=== PATIENT | male | born 1970 | race Caucasian/White ===

== ENCOUNTER → 2020-06-13 17:59 | Outpatient (CLI) | payer OTHER, SELFPAY | PROVIDERS: PCP Family Medicine; Visit Provider Nurse Practitioner Family | DX: Z02.4 Encounter for examination for driving license (principal) ==

== ENCOUNTER → 2021-12-31 12:29 | Outpatient (CLI) | payer OTHER, SELFPAY ==
[2021-12-31 13:01] LABS: Blood Urea Nitrogen 13 mg/dl (9-20); Estimated Glomerular Filt Rate 118 ml/min (>60); GFR (African American) 143 ML/MIN (>60)
--- NOTE | 2021-12-31 13:02 | CT_ITS ---
FINAL REPORT TECHNIQUE: Thin section axial CT images were performed from the lung apices to the upper abdomen after the administration of IV contrast. 3-D and MIP reconstructions performed. This study was performed with techniques to keep radiation doses as low as reasonably achievable (ALARA). Individualized dose reduction techniques using automated exposure control or adjustment of mA and/or kV according to the patient''s size were employed. CLINICAL HISTORY: pulm emboli, PATIENT WAS DX WITH PE 2 YEARS AGO, TAKEN OFF ZORELTO RECENTLY AND SCAN FROM TUESDAY SHOWED BILATERAL ACUTE PE FINDINGS: Pulmonary vasculature is well opacified. There are large bilateral lower lobe pulmonary emboli present. In addition, there are smaller bilateral upper lobe pulmonary emboli present. No saddle embolism is seen. The heart size is normal. There is no pleural or pericardial effusion. There is minimal scarring at the left base. Lungs are otherwise clear. Limited images of the upper abdomen are unremarkable. IMPRESSION: Bilateral pulmonary emboli in both upper and lower lobes, particularly evident in the lower lobes. Reviewed, Interpreted and Dictated by Kenn Fowler MD Transcribed by Delia Dallas Authenticated by Kenn Fowler MD on 12/31/2021 02:47:43 PM [facility]
--- NOTE | 2021-12-31 13:13 | CA_ITS ---
APPROVED REPORT EXAM: Comprehensive 2D, Doppler, and color-flow Echocardiogram Platform Architect: Misa Guan RVT Ht: 6 ft 0 in Wt: 345lbs BSA: 2.69 BP: 153/93 mmHg Indications: SOA,PE'S,STEMI,DM,OBESITY,FATIGUE,HTN,EDEMA TDS-PT BODY HABITUS BEST EXAM POSSIBLE 2D Dimensions LVOT 2.38 cm (M/F) 1.5-2.5 M-Mode Dimensions RVDd 3.99 cm (0.9-2.6) LA Diam 4.50 cm (1.9-4.0) LVDd 3.85 cm (3.5-5.7) Ao Diam 3.20 cm (2.0-3.7) LVDs 2.49 cm (3.5-5.7) IVSd 1.41 cm (0.6-1.1) PWd 1.13 cm (0.6-1.1) EF (Teich) 65.40% FS 35.30% EDV (Teich) 63.90 mL TAPSE 2.63 (<1.7) ESV (Teich) 22.10 mL LV Diastology E Decel Time 233.00 (160-240 msec) E/A Ratio 0.8 MED E' 6.60 (< 7 cm/sec) E'/MED E' Ratio 11.38 (>14) LAT E' 7.70 (<10 cm/sec) E/LAT E' Ratio 9.75 (>14) Aortic Valve AO Peak GR. 6.50 mmHg Mitral Valve MV E Max Terence. 75.00 (40-130 cm/s) MV A Velocity 100.00 (40-130 cm/s) E/A Ratio 0.75 MV Decel. Time 233.00 (160-240 ms) MV PHT 68.00 ms Pulmonary Valve PV Peak Velocity 69.00 (50-150 cm/s) Tricuspid Valve TR P. Velocity 181.00 cm/s RAP Estimate 10.00 mmHg RVSP 23.10 mmHg Left Ventricle Technically difficult study because of the patient factors and poor acoustic windows. Left atrium is mildly enlarged, left ventricle is normal size, mild concentric left ventricular hypertrophy, estimated ejection fraction 55%, there is flattening of the interventricular septum during systole and diastole raising the concern for presence of pressure and volume overload on right ventricle. Right Ventricle Right atrium and right ventricle are moderately enlarged, contractility right ventricle is mildly reduced. Aortic Valve Aortic valve is minimally thickened and fibrosed, there is no aortic stenosis or aortic insufficiency. Mitral Valve Mitral valve is grossly normal, there is trace mitral regurgitation. Tricuspid Valve Tricuspid valve grossly normal, there is trace tricuspid regurgitation, tricuspid regurgitation jet velocity is inadequate for calculation of the right ventricular systolic pressure. Pulmonic Valve Pulmonic valve is poorly visualized. Great Vessels Aortic root is normal size. Inferior vena cava is normal size with normal inspiratory collapse. Pericardium No significant pericardial effusion noted. Conclusion 1. Technically difficult study because of the patient factors and poor acoustic windows. 2. Biatrial enlargement, normal left ventricular size, mild concentric left ventricular hypertrophy, estimated ejection fraction 55%, there is flattening of the interventricular septum during systole and diastole consistent with pressure and volume overload on right ventricle. Grade 1 diastolic dysfunction seen without tissue Doppler evidence of raise left atrial pressure. 3. Trace mitral and tricuspid regurgitation. 4. No significant pericardial effusion noted. 5. Inferior vena cava is normal size with normal inspiratory collapse. Electronically signed by : Teja Rodriguez MD 01/01/2022 12:36:43
== END ==
PROVIDERS: PCP Family Medicine; Visit Provider Internal Medicine
DX: R06.00 Dyspnea, unspecified (principal); R60.0 Localized edema; I21.9 Acute myocardial infarction, unspecified; I26.99 Other pulmonary embolism without acute cor pulmonale; R53.83 Other fatigue; R61 Generalized hyperhidrosis; R94.31 Abnormal electrocardiogram [ECG] [EKG]
CPT/HCPCS: 36415; 71275; 82565; 84520; 93306; Q9967

== ENCOUNTER → 2022-06-03 10:27 | Outpatient (CLI) | payer MEDICAID, SELFPAY | PROVIDERS: PCP Family Medicine; Visit Provider Nurse Practitioner Family | DX: Z02.4 Encounter for examination for driving license (principal) ==

== ENCOUNTER → 2022-06-14 11:55 | Outpatient (CLI) | payer MEDICAID, SELFPAY ==
[2022-06-14 12:34] LABS: Basophils # 0.1 K/mm3 (0-0.2); Basophils % 1.2 % (0.1-2.0); Eosinophils # 0.4 K/mm3 (0.0-0.4); Eosinophils % 3.9 % (0.1-12.0); Hematocrit 49.6 % (42.0-52.0); Lymphocytes # 1.8 K/mm3 (0.7-4.5); Lymphocytes % 16.2 % (10-50); Mean Corpuscular HGB Conc 34.3 g/dL (31.8-35.4); Mean Corpuscular Hemoglobin 33.2 pg (27.0-31.2); Mean Corpuscular Volume 96.8 fl (80-94); Mean Platelet Volume 7.9 fl (7.4-10.4); Monocytes # 0.7 K/mm3 (0.1-1.0); Neutrophils # 8.1 K/mm3 (1.8-7.8); Neutrophils % 72.8 % (37.0-80.0); Platelet Count 283 K/mm3 (142-424); Red Blood Count 5.12 M/mm3 (4.60-6.20); Red Cell Distribution Width 13.8 % (11.5-17.5); White Blood Count 11.2 K/mm3 (4.8-10.8)
[2022-06-14 13:03] LABS: Alanine Aminotransferase 74 U/L (12-78); Albumin Level 3.9 g/dl (3.5-5.0); Alkaline Phosphatase 157 U/L (38-126); Anion Gap 15.3 mEq/L (5-15); Aspartate Amino Transferase 67 U/L (17-59); Bilirubin,Direct 0.2 mg/dl (0.0-0.4); Bilirubin,Indirect 0.2 mg/dL (0.0-0.9); Bilirubin,Total 0.4 mg/dl (0.2-1.3); Bilirubin,Unconjugated 0.3 mg/dL (0.0-1.1); Blood Urea Nitrogen 8 mg/dl (9-20); Calcium 9.3 mg/dl (8.4-10.2); Carbon Dioxide 27 mmol/L (22.0-30.0); Chloride 97 mmol/L (98-107); Chol/HDL Ratio 4.7 (1-3.5); Cholesterol 201 mg/dl (140-200); Estimated Glomerular Filt Rate 141 ml/min (>60); GFR (African American) 171 ML/MIN (>60); Glucose 249 mg/dl (74-100); HDL Cholesterol 43 mg/dl (40-60); Magnesium 1.4 mg/dl (1.6-2.3); Potassium 4.3 mmoL/L (3.5-5.1); Sodium 135 mmol/L (136-145); Total Protein,Serum 7.1 g/dl (6.3-8.2); Triglycerides 156 mg/dl (30-150); VLDL Cholesterol 31 mg/dL (0-40)
[2022-06-14 13:14] LABS: Direct LDL Cholesterol 141.22 mg/dL (100-129)
[2022-06-14 13:33] LABS: Thyroid Stimulating Hormone 1.73 uIU/mL (0.465-4.68)
== END ==
PROVIDERS: PCP Family Medicine; Visit Provider Physician Assistant
DX: I21.A1 Myocardial infarction type 2 (principal); I26.99 Other pulmonary embolism without acute cor pulmonale; R53.83 Other fatigue; R60.0 Localized edema
CPT/HCPCS: 36415; 80048; 80061; 80076; 83735; 84439; 84443; 85025

== ENCOUNTER → 2022-08-16 09:35 | Outpatient (CLI) | payer MEDICAID, SELFPAY ==
[2022-08-16 10:11] LABS: Chloride 98 mmol/L (98-107); Potassium 4.7 mmoL/L (3.5-5.1); Sodium 134 mmol/L (136-145)
[2022-08-16 10:13] LABS: Blood Urea Nitrogen 10 mg/dl (9-20); Estimated Glomerular Filt Rate 118 ml/min (>60); GFR (African American) 143 ML/MIN (>60)
[2022-08-16 10:14] LABS: Alanine Aminotransferase 63 U/L (12-78); Albumin Level 4.1 g/dl (3.5-5.0); Alkaline Phosphatase 150 U/L (38-126); Anion Gap 15.7 mEq/L (5-15); Aspartate Amino Transferase 51 U/L (17-59); Bilirubin,Direct 0.2 mg/dl (0.0-0.4); Bilirubin,Indirect 0.6 mg/dL (0.0-0.9); Bilirubin,Total 0.8 mg/dl (0.2-1.3); Bilirubin,Unconjugated 0.6 mg/dL (0.0-1.1); Calcium 9.8 mg/dl (8.4-10.2); Carbon Dioxide 25 mmol/L (22.0-30.0); Cholesterol 169 mg/dl (140-200); Glucose 221 mg/dl (74-100); Total Protein,Serum 7.1 g/dl (6.3-8.2); Triglycerides 140 mg/dl (30-150); VLDL Cholesterol 28 mg/dL (0-40)
[2022-08-16 10:15] LABS: Chol/HDL Ratio 3.4 (1-3.5); HDL Cholesterol 49 mg/dl (40-60); Magnesium 1.7 mg/dl (1.6-2.3)
[2022-08-16 10:26] LABS: Direct LDL Cholesterol 91.03 mg/dL (100-129)
== END ==
PROVIDERS: PCP Family Medicine; Visit Provider Physician Assistant
DX: E78.5 Hyperlipidemia, unspecified (principal); E83.42 Hypomagnesemia; I51.89 Other ill-defined heart diseases
CPT/HCPCS: 36415; 80048; 80061; 80076; 83735

== ENCOUNTER 2022-08-19 12:52 | Emergency (ER) | payer MEDICAID, SELFPAY ==
[2022-08-19 13:41] VITALS: BP 104/64; PULSE 74; RESP 20; TEMP 36.7; O2SAT 97; BMI 44.0
[2022-08-19 14:00] VITALS: BP 123/70; PULSE 70; RESP 18; O2SAT 98
--- NOTE | 2022-08-19 14:22 | XR_ITS ---
FINAL REPORT CLINICAL HISTORY: weakness/dizziness, HYPERTENSION X DAYS. NONSMOKER FINDINGS: A single portable view of the chest was obtained. There is cardiomegaly. The mediastinum is within normal limits. No acute pulmonary abnormality is identified. There are postoperative changes in the lower cervical spine. IMPRESSION: No active cardiopulmonary disease. Reviewed, Interpreted and Dictated by Jason Platt III, MD Transcribed by Sherita Rodriguez Authenticated and . [facility]
--- NOTE | 2022-08-19 14:26 | ECG_ITS ---
APPROVED REPORT Exam: Resting ECG HR:66 bpm ECG Measurements Heart Rate 66 AXES OR 157 P 22 QRSd 87 QRS 14 QT 388 T 69 QTc 402 Conclusion SINUS RHYTHM NORMAL ECG INTERPRETATION BASED ON A DEFAULT AGE OF 39 YEARS UNCONFIRMED REPORT Electronically signed by : Bhaskar Peck MD 08/20/2022 16:47:25
[2022-08-19 14:30] VITALS: BP 128/77; PULSE 73; RESP 18; O2SAT 98
[2022-08-19 14:47] LABS: Basophils # 0.2 K/mm3 (0-0.2); Basophils % 1.3 % (0.1-2.0); Chloride 97 mmol/L (98-107); Eosinophils # 0.3 K/mm3 (0.0-0.4); Eosinophils % 2.3 % (0.1-12.0); Hematocrit 42.9 % (42.0-52.0); Hemoglobin 14.8 g/dL (14.1-18.0); Lymphocytes # 2.8 K/mm3 (0.7-4.5); Lymphocytes % 22.3 % (10-50); Mean Corpuscular HGB Conc 34.6 g/dL (31.8-35.4); Mean Corpuscular Hemoglobin 32.1 pg (27.0-31.2); Mean Corpuscular Volume 92.9 fl (80-94); Mean Platelet Volume 7.9 fl (7.4-10.4); Monocytes # 0.8 K/mm3 (0.1-1.0); Monocytes % 6.5 % (1.7-9.3); Neutrophils # 8.4 K/mm3 (1.8-7.8); Neutrophils % 67.6 % (37.0-80.0); Platelet Count 348 K/mm3 (142-424); Potassium 4.3 mmoL/L (3.5-5.1); Red Blood Count 4.61 M/mm3 (4.60-6.20); Sodium 133 mmol/L (136-145); White Blood Count 12.5 K/mm3 (4.8-10.8)
[2022-08-19 14:50] LABS: Alanine Aminotransferase 64 U/L (12-78); Albumin Level 4.2 g/dl (3.5-5.0); Albumin/Globulin Ratio 1.3 (1.1-1.8); Alkaline Phosphatase 131 U/L (38-126); Anion Gap 15.3 mEq/L (5-15); Aspartate Amino Transferase 63 U/L (17-59); Bilirubin,Total 0.6 mg/dl (0.2-1.3); Blood Urea Nitrogen 17 mg/dl (9-20); Carbon Dioxide 25 mmol/L (22.0-30.0); Creatinine Clearance Estimated 117 mL/min (50-200); Estimated Glomerular Filt Rate 101 ml/min (>60); GFR (African American) 122 ML/MIN (>60); Globulin 3.3 g/dL (1.3-3.2); Glucose 142 mg/dl (74-100); Total Protein,Serum 7.5 g/dl (6.3-8.2)
[2022-08-19 14:51] LABS: Calcium 10.2 mg/dl (8.4-10.2)
--- NOTE | 2022-08-19 14:58 | HMH.EDGENADL ---
Discharge Plan Disposition Patient Disposition: Home, Self-Care Condition: Good Prescriptions Prescriptions: No Action allopurinol 300 mg tablet 300 mg PO DAILY allopurinol 100 mg tablet 100 mg PO DAILY benazepril 40 mg tablet 40 mg PO DAILY cholecalciferol (vitamin D3) [Vitamin D3] 25 mcg (1,000 unit) capsule 25 mcg PO BID garlic 1,000 mg capsule 1,000 mg capsule 1,000 mg PO DAILY carvedilol 12.5 mg tablet 25 mg PO BID Rx Instructions: 2 tabs po bid rivaroxaban 15 mg tablet 15 mg PO DAILY metformin 500 mg tablet 500 mg PO BID furosemide [Lasix] 40 mg tablet 40 mg PO DAILY Qty: 30 2RF spironolactone [Aldactone] 25 mg tablet 25 mg PO DAILY Qty: 30 5RF magnesium oxide 400 mg (241.3 mg magnesium) tablet 400 mg PO DAILY Qty: 30 2RF atorvastatin [Lipitor] 80 mg tablet 80 mg PO DAILY Qty: 30 2RF Referrals Follow up/Referrals: Dion Enriquez [Primary Care Provider] - See instructions Activity Restrictions/Add. Instructions Additional Instructions/Restrictions: Decrease Coreg dose to 12.5 mg twice a day. Call Dr. Crespo's office to arrange follow-up appointment. Return to the emergency department if symptoms worsen. Clinical Impressions Clinical Impression: Episodic lightheadedness Instructions Patient Instructions: DI for Dizziness-Nonvertigo Discharge ED Provider: Wan Finch General Adult HPI General Chief complaint: Dizziness Stated complaint: LT arm weakness, lightheaded Time Seen by Provider: 08/19/22 14:58 Mode of Arrival: Wheelchair Source of Information: Patient Limitations: No Limitations Description of Symptoms (Recalled from ER Triage Doc. by RN): Patient reports he started feeling dizzy, light headed after taking his morning medications. Patient reports he has experienced this before but generally it goes away fairly quickly but it has not subsided this morning and has just gotten worse. History of Present Illness HPI narrative: Patient states that after taking his morning medications, including his blood pressure medication, that he began feeling lightheaded. He says that this generally happens after he takes his medications but usually will resolve fairly quickly and today it did not. It lasted for several hours. He now feels back to normal. He says that he took his blood pressure this morning it was 106 over 50s. States normally he runs 120-130 systolic. He says that his most recent blood pressure medication change was for Dr. Crespo to stop his clonidine. Denies chest pain or shortness of breath. Related Data Home Medications Medication Instructions Recorded Confirmed allopurinol 100 mg tablet 100 mg PO DAILY 04/21/20 08/16/22 allopurinol 300 mg tablet 300 mg PO DAILY 04/21/20 08/16/22 benazepril 40 mg tablet 40 mg PO DAILY 04/21/20 08/16/22 cholecalciferol (vitamin D3) 25 25 mcg PO BID 04/21/20 08/16/22 mcg (1,000 unit) capsule (Vitamin D3) garlic 1,000 mg capsule 1,000 mg PO DAILY 04/21/20 08/16/22 carvedilol 12.5 mg tablet 25 mg PO BID 12/31/21 08/16/22 metformin 500 mg tablet 500 mg PO BID 12/31/21 08/16/22 rivaroxaban 15 mg tablet 15 mg PO DAILY 05/31/22 08/16/22 Previous Rx's Medication Instructions Recorded furosemide 40 mg tablet (Lasix) 40 mg PO DAILY #30 tabs 05/31/22 magnesium oxide 400 mg (241.3 mg 400 mg PO DAILY #30 tabs 06/15/22 magnesium) tablet spironolactone 25 mg tablet 25 mg PO DAILY #30 tabs 06/15/22 (Aldactone) atorvastatin 80 mg tablet (Lipitor) 80 mg PO DAILY #30 tabs 08/17/22 Allergies Allergy/AdvReac Type Severity Reaction Status Date / Time cephalexin [From KEFLEX] Allergy Mild Verified 08/16/22 09:52 erythromycin base Allergy Mild Verified 08/16/22 09:52 [ERYTHROMYCIN BASE] naproxen [NAPROXEN] Allergy Mild Verified 08/16/22 09:52 PCN Allergy Mild Uncoded 08/16/22 09:52 [facility] Disclaimer: The information contained in this sec
[2022-08-19 15:35] LABS: Troponin I < 0.01 ng/ml (0.00-0.034)
[2022-08-19 16:43] VITALS: BP 126/74; PULSE 73; RESP 16; TEMP 36.9; O2SAT 98
== END 2022-08-19 16:48 | disposition home or self-care (01) ==
PROVIDERS: Emergency Provider Emergency Medicine; PCP Family Medicine
DX: R42 Dizziness and giddiness (principal); Z79.84 Long term (current) use of oral hypoglycemic drugs; Z79.51 Long term (current) use of inhaled steroids; Z79.899 Other long term (current) drug therapy; Z88.0 Allergy status to penicillin; Z88.1 Allergy status to other antibiotic agents; E78.5 Hyperlipidemia, unspecified; I51.89 Other ill-defined heart diseases
CPT/HCPCS: 71045; 80053; 84484; 85025; 93005; 99284

== ENCOUNTER 2022-08-27 22:57 | Emergency (ER) | payer MEDICAID, SELFPAY ==
[2022-08-27 22:58] VITALS: BP 133/59; PULSE 115; RESP 21; TEMP 36.8; O2SAT 98; BMI 43.4
--- NOTE | 2022-08-27 23:06 | PC.NURSE ---
Dr. Martin at
--- NOTE | 2022-08-27 23:44 | XR_ITS ---
PROCEDURE INFORMATION: Exam: XR Chest Exam date and time: 08/28/2022 12:03 AM Age: 52 years old Clinical indication: Shortness of breath; Additional info: Weakness TECHNIQUE: Imaging protocol: Radiologic exam of the chest. Views: 1 view. Portable chest x-ray. COMPARISON: CR XR CHEST PORTABLE 08/19/2022 2:48 PM FINDINGS: Lungs: No airspace consolidation or nodules. Lung volumes are low. No vascular congestion. Pleural spaces: No pleural effusion. No pneumothorax. Heart/Mediastinum: Heart is enlarged. Bones/joints: No fractures or bone lesions. IMPRESSION: 1. Cardiomegaly similar to 08/19/2022. 2. No acute pulmonary disease. Lung volumes are low.
[2022-08-27 23:46] LABS: Microscopic, Urine URINE MICROSCOPIC (MICROSCOPIC)
[2022-08-27 23:48] LABS: Basophils # 0.2 K/mm3 (0-0.2); Basophils % 1.5 % (0.1-2.0); Eosinophils # 0.5 K/mm3 (0.0-0.4); Eosinophils % 3.6 % (0.1-12.0); Hematocrit 39.9 % (42.0-52.0); Hemoglobin 13.7 g/dL (14.1-18.0); Lymphocytes # 3.4 K/mm3 (0.7-4.5); Lymphocytes % 26.8 % (10-50); Mean Corpuscular HGB Conc 34.3 g/dL (31.8-35.4); Mean Corpuscular Hemoglobin 31.9 pg (27.0-31.2); Mean Platelet Volume 8.1 fl (7.4-10.4); Monocytes # 0.7 K/mm3 (0.1-1.0); Monocytes % 5.8 % (1.7-9.3); Neutrophils # 7.8 K/mm3 (1.8-7.8); Neutrophils % 62.2 % (37.0-80.0); Platelet Count 340 K/mm3 (142-424); Red Blood Count 4.29 M/mm3 (4.60-6.20); Red Cell Distribution Width 14.3 % (11.5-17.5); White Blood Count 12.5 K/mm3 (4.8-10.8)
[2022-08-27 23:50] LABS: Appearance,Urine CLEAR (Clear); Bilirubin,Urine Negative (Negative); Blood, Urine Negative (Negative); Color,Urine YELLOW (Yellow); Glucose,Urine (UA) TRACE (Negative); Ketones,Urine Negative (Negative); Leukocyte Esterase,Urine Negative (Negative); Nitrate,Urine Negative (Negative); PH,Urine 5.5 (5.0-8.5); Protein,Urine Negative (Negative); Specific Gravity, Urine <= 1.005 (1.005-1.030); Urobilinogen,Urine 0.2 EU/dl (0.2)
[2022-08-27 23:52] LABS: Magnesium 1.3 mg/dl (1.6-2.3)
--- NOTE | 2022-08-27 23:53 | HMH.EDWEAK ---
Discharge Plan Disposition Patient Disposition: Home, Self-Care Chief Complaint: Weakness Prescriptions Prescriptions: No Action allopurinol 300 mg tablet 300 mg PO DAILY allopurinol 100 mg tablet 100 mg PO DAILY benazepril 40 mg tablet 40 mg PO HS cholecalciferol (vitamin D3) [Vitamin D3] 25 mcg (1,000 unit) capsule 25 mcg PO BID garlic 1,000 mg capsule 1,000 mg capsule 1,000 mg PO DAILY carvedilol 12.5 mg tablet 12.5 mg PO BID Rx Instructions: 2 tabs po bid metformin 500 mg tablet 500 mg PO BID Xarelto 20 mg tablet 20 mg PO HS furosemide [Lasix] 40 mg tablet 40 mg PO DAILY atorvastatin [Lipitor] 80 mg tablet 80 mg PO DAILY spironolactone [Aldactone] 25 mg tablet 25 mg PO DAILY magnesium oxide 400 mg (241.3 mg magnesium) tablet 400 mg PO DAILY Referrals Follow up/Referrals: Dion Enriquez [Primary Care Provider] - See instructions Clinical Impressions Clinical Impression: Episodic lightheadedness, Diastolic dysfunction Instructions Patient Instructions: DI for Orthostatic Hypotension Discharge ED Provider: Galdino Martin HPI General Chief complaint: Weakness Stated complaint: low blood pressure Time Seen by Provider: 08/27/22 23:53 Mode of Arrival: Family Vehicle Source of Information: Patient, Spouse and Medical Record Limitations: No Limitations Description of Symptoms (Recalled from ER Triage Doc. by RN): Pt c/o low BP and pre-syncopal episode. He states he was here last week (08/19) and was told to adjust his BP meds. His Coreg was changed to 12.5 BID and benazopril to nightly. Pt states he felt fine until after eating supper and then stood up and felt light headed, weak, and thought his BP dropped. Fmaily took it oat home and states it was 57/75 and then 70/62 . History of Present Illness HPI Narrative: pt with episode of low bp with assoc dizzyness - pt has been seen in the ed last week MD Complaint: generalized weakness Onset (ago): hour(s) Duration: intermittent Location: generalized Migration: none Severity: moderate Context: history of similar Related Data Home Medications Medication Instructions Recorded Confirmed allopurinol 100 mg tablet 100 mg PO DAILY 04/21/20 08/16/22 allopurinol 300 mg tablet 300 mg PO DAILY 04/21/20 08/16/22 benazepril 40 mg tablet 40 mg PO DAILY 04/21/20 08/16/22 cholecalciferol (vitamin D3) 25 25 mcg PO BID 04/21/20 08/16/22 mcg (1,000 unit) capsule (Vitamin D3) garlic 1,000 mg capsule 1,000 mg PO DAILY 04/21/20 08/16/22 carvedilol 12.5 mg tablet 25 mg PO BID 12/31/21 08/16/22 metformin 500 mg tablet 500 mg PO BID 12/31/21 08/16/22 atorvastatin 80 mg tablet (Lipitor) 80 mg PO DAILY High cholesterol 08/28/22 08/28/22 furosemide 40 mg tablet (Lasix) 40 mg PO DAILY Fluid 08/28/22 08/28/22 magnesium oxide 400 mg (241.3 mg 400 mg PO DAILY Supplement 08/28/22 08/28/22 magnesium) tablet rivaroxaban 20 mg tablet (Xarelto) 20 mg PO HS PE's 08/28/22 08/28/22 spironolactone 25 mg tablet 25 mg PO DAILY High blood pressure 08/28/22 08/28/22 (Aldactone) Allergies Allergy/AdvReac Type Severity Reaction Status Date / Time cephalexin [From KEFLEX] Allergy Mild Verified 08/16/22 09:52 erythromycin base Allergy Mild Verified 08/16/22 09:52 [ERYTHROMYCIN BASE] naproxen [NAPROXEN] Allergy Mild Verified 08/16/22 09:52 PCN Allergy Mild Uncoded 08/16/22 09:52 [facility] Disclaimer: The information contained in this section may have been updated after the patient was seen, as this information can be updated by other users. Medical History Diastolic dysfunction HLD (hyperlipidemia) Hypomagnesemia Social History Smoking Status: Never smoker alcohol intake: current substance use type: denies use current occupational status: employed Travel in
[2022-08-27 23:58] LABS: Squamous Epithelial Cell,Urine Occasional #/hpf (0-5)
[2022-08-28 00:05] LABS: NT Pro Brain Natriuretic Pep. 37.1 pg/mL (0-125); Troponin I < 0.01 ng/ml (0.00-0.034)
[2022-08-28 00:11] LABS: Alanine Aminotransferase 41 U/L (12-78); Albumin Level 3.9 g/dl (3.5-5.0); Albumin/Globulin Ratio 1.2 (1.1-1.8); Alkaline Phosphatase 135 U/L (38-126); Anion Gap 14.8 mEq/L (5-15); Aspartate Amino Transferase 41 U/L (17-59); Bilirubin,Total 0.6 mg/dl (0.2-1.3); Blood Urea Nitrogen 14 mg/dl (9-20); Calcium 9.6 mg/dl (8.4-10.2); Carbon Dioxide 24 mmol/L (22.0-30.0); Chloride 96 mmol/L (98-107); Creatinine Clearance Estimated 94 mL/min (50-200); Estimated Glomerular Filt Rate 78 ml/min (>60); GFR (African American) 95 ML/MIN (>60); Globulin 3.3 g/dL (1.3-3.2); Glucose 165 mg/dl (74-100); Potassium 3.8 mmoL/L (3.5-5.1); Sodium 131 mmol/L (136-145); Total Protein,Serum 7.2 g/dl (6.3-8.2)
[2022-08-28 00:20] VITALS: BP 86/46; BP 95/51; PULSE 69; PULSE 74; PULSE 79
--- NOTE | 2022-08-28 00:20 | PC.NURSE ---
Hospitalist at bedside
[2022-08-28 01:04] VITALS: BP 108/59; PULSE 80; RESP 19; TEMP 36.6; O2SAT 99
--- NOTE | 2022-08-28 23:04 | ECG_ITS ---
APPROVED REPORT Exam: Resting ECG HR:69 bpm ECG Measurements Heart Rate 69 AXES ND 166 P 45 QRSd 92 QRS 29 QT 395 T 66 QTc 415 Conclusion SINUS RHYTHM NORMAL ECG UNCONFIRMED REPORT Electronically signed by : Bhaskar Peck MD 08/30/2022 11:15:02
== END 2022-08-28 01:08 | disposition home or self-care (01) ==
PROVIDERS: Emergency Provider Emergency Medicine; PCP Family Medicine
DX: R42 Dizziness and giddiness (principal); I50.31 Acute diastolic (congestive) heart failure; R53.1 Weakness; I95.9 Hypotension, unspecified; E83.42 Hypomagnesemia; E78.5 Hyperlipidemia, unspecified; E66.9 Obesity, unspecified; Z79.01 Long term (current) use of anticoagulants; Z79.84 Long term (current) use of oral hypoglycemic drugs; Z79.899 Other long term (current) drug therapy; Z88.0 Allergy status to penicillin; Z88.1 Allergy status to other antibiotic agents; Z88.3 Allergy status to other anti-infective agents; Z88.6 Allergy status to analgesic agent; Z88.8 Allergy status to other drugs, medicaments and biological substances; Z68.41 Body mass index [BMI] 40.0-44.9, adult
CPT/HCPCS: 71045; 80053; 81001; 83735; 83880; 84484; 85025; 93005; 96360; 99285

== ENCOUNTER → 2022-11-08 10:16 | Outpatient (CLI) | payer MEDICAID, SELFPAY ==
--- NOTE | 2022-11-08 10:20 | XR_ITS ---
FINAL REPORT CLINICAL HISTORY: foot pain, bilat numbness/pain in toes, prior fx in left foot x30 yrs ago FINDINGS: LEFT FOOT Three views of the left foot demonstrate no acute fracture or dislocation. There are mild and moderate degenerative changes, greatest at the 1st MTP joint. There is chronic deformity of the 4th metatarsal which may represent sequela of prior fracture. The soft tissues are unremarkable. IMPRESSION: Mild and moderate degenerative changes with no acute bony abnormality. Reviewed, Interpreted and Dictated by Jason Platt III, MD Transcribed by Sherita Rodriguez Authenticated and [facility]
--- NOTE | 2022-11-08 10:20 | XR_ITS ---
FINAL REPORT CLINICAL HISTORY: foot pain, bilat numbness/pain in toes, prior fx in left foot x30 yrs ago FINDINGS: RIGHT FOOT Three views of the right foot demonstrate no acute fracture or dislocation. There are mild degenerative changes. There is a posterior calcaneal spur. The soft tissues are unremarkable. IMPRESSION: Mild degenerative changes with no acute bony abnormality. Reviewed, Interpreted and Dictated by Jason Platt III, MD Transcribed by Sherita Rodriguez Authenticated and [facility]
--- NOTE | 2022-11-08 10:20 | XR_ITS ---
FINAL REPORT CLINICAL HISTORY: foot pain, bilat numbness/pain in toes, prior fx in left foot x30 yrs ago FINDINGS: LEFT ANKLE Three views of the left ankle were obtained. There is no acute fracture or dislocation. There are mild degenerative changes. There are calcaneal spurs.. There are mild vascular calcifications. IMPRESSION: Mild degenerative changes with no acute bony abnormality. Reviewed, Interpreted and Dictated by Jason Platt III, MD Transcribed by Sherita Rodriguez Authenticated and [facility]
--- NOTE | 2022-11-08 10:20 | XR_ITS ---
FINAL REPORT CLINICAL HISTORY: foot pain, bilat numbness/pain in toes, prior fx in left foot x30 yrs ago FINDINGS: RIGHT ANKLE Three views of the right ankle were obtained. There is no acute fracture or dislocation. There are mild and moderate degenerative changes. There is a posterior calcaneal spur. There are soft tissue calcifications. IMPRESSION: Mild and moderate degenerative changes with no acute bony abnormality. Reviewed, Interpreted and Dictated by Jason Platt III, MD Transcribed by Sherita Rodriguez Authenticated and [facility]
== END ==
PROVIDERS: PCP Family Medicine; Visit Provider Podiatrist
DX: M79.671 Pain in right foot (principal); M79.672 Pain in left foot; M25.571 Pain in right ankle and joints of right foot; M25.572 Pain in left ankle and joints of left foot
CPT/HCPCS: 73610; 73630

== ENCOUNTER → 2022-11-22 11:08 | Outpatient (CLI) | payer MEDICAID, SELFPAY ==
--- NOTE | 2022-11-22 | US_ITS ---
FINAL REPORT CLINICAL HISTORY: HTN, CAD, DM, IA, numb toes FINDINGS: ANKLE-BRACHIAL PRESSURE INDICES Pressure indices are as follows: RIGHT LOWER EXTREMITY: Ankle-brachial pressure index: 1.2 Comments: Normal LEFT LOWER EXTREMITY: Ankle-brachial pressure index: 1.2 Comments: Normal IMPRESSION: No evidence of significant obstructive peripheral vascular disease of the lower extremities Reviewed, Interpreted and Dictated by Kenn Fowler MD Transcribed by Kimmy Isidro Authenticated and [facility]
== END ==
PROVIDERS: PCP Family Medicine; Visit Provider Nurse Practitioner Family
DX: R09.89 Other specified symptoms and signs involving the circulatory and respiratory systems (principal); M79.671 Pain in right foot; M79.672 Pain in left foot; R20.0 Anesthesia of skin
CPT/HCPCS: 93923

== ENCOUNTER 2024-06-25 10:50 | Outpatient (CLI) | payer OTHER, SELFPAY ==
--- NOTE | 2024-06-25 10:55 | XR_ITS ---
PROCEDURE INFORMATION: Exam: XR Chest Exam date and time: 06/25/2024 11:02 AM Age: 54 years old Clinical indication: Cough and dyspnea; Additional info: Cough, dyspnea, TECHNIQUE: Imaging protocol: Radiologic exam of the chest. Views: 2 views. COMPARISON: CR XR CHEST PORTABLE 08/28/2022 12:03 AM FINDINGS: Lungs: The lungs are clear. Pleural spaces: No pneumothorax or pleural effusion. Heart/Mediastinum: Heart size is enlarged. Mediastinal contours unremarkable. Bones/joints: No acute osseous or soft tissue abnormality. IMPRESSION: 1. The lungs are clear. 2. Cardiomegaly.
[2024-06-25 11:57] LABS: Basophils # 0.1 K/mm3 (0-0.2); Basophils % 1.2 % (0.1-2.0); Eosinophils # 0.8 K/mm3 (0.0-0.4); Eosinophils % 6.8 % (0.1-12.0); Hematocrit 43.5 % (42.0-52.0); Hemoglobin 15.7 g/dL (14.1-18.0); Mean Corpuscular HGB Conc 36.1 g/dL (31.8-35.4); Mean Corpuscular Hemoglobin 32.7 pg (27.0-31.2); Mean Corpuscular Volume 90.6 fl (80-94); Mean Platelet Volume 7.6 fl (7.4-10.4); Monocytes % 8.2 % (1.7-9.3); Neutrophils % 66.8 % (37.0-80.0); Platelet Count 306 K/mm3 (142-424); Red Cell Distribution Width 14.2 % (11.5-17.5)
[2024-06-25 12:17] LABS: Alanine Aminotransferase 48 U/L (12-78); Albumin Level 3.9 g/dl (3.5-5.0); Alkaline Phosphatase 105 U/L (38-126); Anion Gap 12.5 mEq/L (5-15); Aspartate Amino Transferase 42 U/L (17-59); Bilirubin,Direct 0.3 mg/dl (0.0-0.4); Bilirubin,Indirect 0.6 mg/dL (0.0-0.9); Bilirubin,Total 0.9 mg/dl (0.2-1.3); Bilirubin,Unconjugated 0.6 mg/dL (0.0-1.1); Blood Urea Nitrogen 7 mg/dl (9-20); Calcium 9.2 mg/dl (8.4-10.2); Carbon Dioxide 25 mmol/L (22.0-30.0); Chloride 101 mmol/L (98-107); Chol/HDL Ratio 2.5 (1-3.5); Cholesterol 124 mg/dl (140-200); Estimated Glomerular Filt Rate 117 ml/min (>60); GFR (African American) 142 ML/MIN (>60); Glucose 172 mg/dl (74-100); HDL Cholesterol 50 mg/dl (40-60); Magnesium 1.6 mg/dl (1.6-2.3); Potassium 4.5 mmoL/L (3.5-5.1); Sodium 134 mmol/L (136-145); Triglycerides 75 mg/dl (30-150); VLDL Cholesterol 15 mg/dL (0-40)
[2024-06-25 12:26] LABS: NT Pro Brain Natriuretic Pep. 47.4 pg/mL (0-125)
[2024-06-25 12:28] LABS: Direct LDL Cholesterol 62.89 mg/dL (100-129)
[2024-06-25 12:47] LABS: Thyroid Stimulating Hormone 3.01 uIU/mL (0.465-4.68)
== END 2024-06-25 23:59 | disposition home or self-care (01) ==
LOC: LAB 10:52
PROVIDERS: PCP Family Medicine; Visit Provider Physician Assistant
DX: R60.9 Edema, unspecified (principal); I26.99 Other pulmonary embolism without acute cor pulmonale; R06.00 Dyspnea, unspecified; R05.9 Cough, unspecified; I51.89 Other ill-defined heart diseases; E78.5 Hyperlipidemia, unspecified; I10 Essential (primary) hypertension
CPT/HCPCS: 36415; 71046; 80048; 80061; 80076; 83735; 83880; 84439; 84443; 85025

== ENCOUNTER 2024-08-12 15:39 | Emergency (ER) | payer OTHER, SELFPAY ==
[2024-08-12] VITALS (10 sets, daily range): BP systolic 123–166; BP diastolic 77–104; PULSE 63–88; RESP 14–24; TEMP 36.6–37.1; O2SAT 93–97; BMI 46.0
--- NOTE | 2024-08-12 15:39 | ECG_ITS ---
APPROVED REPORT Exam: Resting ECG HR:84 bpm ECG Measurements Heart Rate 84 AXES LA 153 P 50 QRSd 88 QRS 0 QT 358 T 62 QTc 399 Conclusion SINUS RHYTHM NORMAL ECG Electronically signed by : MICHAELA DÍAZ, 08/12/2024 22:23:44
--- NOTE | 2024-08-12 15:51 | CT_ITS ---
PROCEDURE INFORMATION: Exam: CTA Chest With Contrast Exam date and time: 08/12/2024 5:30 PM Age: 54 years old Clinical indication: Shortness of breath; Additional info: SOA, h/o pe, cough, r>l wheezes TECHNIQUE: Imaging protocol: Computed tomographic angiography of the chest with contrast. Exam focused on the arteries. 3D rendering (Not supervised by radiologist): MIP and/or 3D reconstructed images were created by the technologist. Radiation optimization: All CT scans at this facility use at least one of these dose optimization techniques: automated exposure control; mA and/or kV adjustment per patient size (includes targeted exams where dose is matched to clinical indication); or iterative reconstruction. Contrast material: ISOVUE 370; Contrast volume: 70 ml; Contrast route: INTRAVENOUS (IV); COMPARISON: 1. CT ANGIO CHEST PE PROTOCOL 12/31/2021 1:27 PM 2. CR XR CHEST 2V 06/25/2024 11:02 AM 3. CR XR CHEST PORTABLE 08/28/2022 12:03 AM FINDINGS: Pulmonary arteries: There is fair opacification of the pulmonary arterial tree. No central pulmonary arterial filling defect is seen. Aorta: Unremarkable. No aortic aneurysm. No aortic dissection. Other arteries: Subsegmental vessels are not well evaluated due to motion and technical factors. Lungs: Unremarkable. No consolidation. No masses. Pleural spaces: Unremarkable. No pneumothorax. No pleural effusion. Heart: Unremarkable. No cardiomegaly. No pericardial effusion. Lymph nodes: There are calcified mediastinal lymph nodes likely reflecting prior granulomatous disease. Spleen: There are multiple calcifications in the spleen most likely reflects small granulomas. Adrenal glands: Stable tiny right adrenal adenoma measuring 1 cm. Bones/joints: There is partially visualized cervical spine surgical hardware. Soft tissues: Unremarkable. Other findings: There are scattered consolidative changes which could reflect infection or edema. Motion artifact mildly limits evaluation. IMPRESSION: 1. There are scattered c flu onsolidative changes which could reflect infection or edema. 2. No central pulmonary arterial filling defect is seen. Subsegmental vessels are not well evaluated due to motion and technical factors.
[2024-08-12] MEDS: IPRATROPIUM/ALBUTEROL 3 ML NEB 6 ML IH (15:58)
[2024-08-12 16:04] LABS: VBG Base Excess 1.7 mmol/L (-2.4-2.3); VBG HCO3 25.8 mmol/L (23-30); VBG Oxygen Saturation 92.6 % (50-70); VBG PCO2 38.6 mmol/L (35-51); VBG PH 7.44 mmol/L (7.31-7.41); VBG PO2 65.1 mmol/L (28-40)
[2024-08-12 16:05] LABS: Lactate Venous 3.6 mmol/L (0.4-2.0)
--- NOTE | 2024-08-12 16:12 | [facility].EDCP ---
Discharge Plan Disposition Patient Disposition: Home, Self-Care Condition: Good Prescriptions Prescriptions: New doxycycline hyclate 100 mg tablet 100 mg PO BID 10 Days Qty: 20 0RF prednisone 20 mg tablet 40 mg PO DAILY 4 Days Qty: 8 0RF No Action Entresto 24-26 mg tablet 1 tab PO BID Qty: 60 2RF Entresto 24-26 mg tablet 0RF allopurinol 300 mg tablet 300 mg PO DAILY allopurinol 100 mg tablet 100 mg PO DAILY cholecalciferol (vitamin D3) [Vitamin D3] 25 mcg (1,000 unit) capsule 25 mcg PO BID garlic 1,000 mg capsule 1,000 mg PO DAILY atorvastatin 80 mg tablet 80 mg PO DAILY Qty: 90 3RF carvedilol 12.5 mg tablet 12.5 mg PO BID furosemide [Lasix] 40 mg tablet 40 mg PO DAILY Qty: 90 3RF Xarelto 20 mg tablet 20 mg PO HS Qty: 30 8RF magnesium oxide 400 mg (241.3 mg magnesium) tablet 400 mg PO DAILY Qty: 30 5RF Referrals Follow up/Referrals: Dion Enriquez [Primary Care Provider] - See instructions Activity Restrictions/Add. Instructions Additional Instructions/Restrictions: You were evaluated in the emergency department today. At this time, your CT scan is concerning for infection as well as your labs. You were found to be wheezing in the emergency department, so you are provided with inhaler. Please use this every 4-6 hours as needed for wheezing. 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 Start this tomorrow, as you were given first doses here today. Follow-up closely with your primary care provider over the next 72 hours. I also recommend close follow up with your PCP. Return to the emergency department right away for new or worsening symptoms. Clinical Impressions Clinical Impression: Pneumonia, Bilateral wheezing Stand Alone Forms Stand Alone Forms: Work/School Release Instructions Patient Instructions: DI for Asthma -- Adult, DI for Pneumonia -- Adult Print Language Print Language: Irish Discharge ED Provider: Priya May HPI General Chief Complaint: Chest Pain Stated Complaint: Chest pain Time Seen by Provider: 08/12/24 15:44 Mode of Arrival: Ambulatory Source of Information: Patient Limitations: No Limitations Description of Symptoms (Recalled from ER Triage Doc. by RN): pt reports to ed with c/o shortness of air and chest pain. pts reports chest pain that began today, and shortness of air ongoing for awhile , but has gotten worse today. History of Present Illness HPI narrative: This patient is a 54-year-old male with a history of hypertension, hyperlipidemia, PE on Xarelto, diastolic dysfunction, peripheral edema, and obesity presenting to the emergency department for evaluation with concern for shortness of breath and chest pain. Patient states that for the last several weeks, he has been dealing with orthopnea, coughing while asleep, and waking up feeling like he is short of air. He notes that today, the shortness of breath has been much worse and he is coughed so much that now he has midsternal chest pain. He states that it feels like he swallowed a bunch of peanut butter and it is stuck there. He notes that he had had a bit of a dry cough before, so his primary care provider changed him from lisinopril to Entresto. The cough that he is having now is dry. He said no fevers, chills, abdominal pain, nausea, vomiting, changes bowel movements, leg swelling, calf pain, or other concerns. He reports compliance with his home medications, including Lasix. Related Data Home Medications ?Medication ?Instructions ?Recorded ?Confirmed allopurinol 100 mg tablet 100 mg PO DAILY gout 04/21/20 06/25/24 allopurinol 300 mg tablet 300 mg PO DAILY gout 04/21/20 06/25/24 cholecalciferol (vitamin D3) 25 25 mcg PO BID Supplement 04/21/20 06/25/24 mcg (1,000 unit) capsule (Vitamin D3) garlic 1,000 mg capsule 1,000 mg PO DAILY Supplement 04/21/20 06/25/24 carvedilol 12.5 mg tablet 12.5 mg PO BID High blood pressure 09/22/23 06/25/24 Previous Rx's ?Medication ?Instructions ?Recorded furosemide 40 mg tablet (Lasix) 40 mg PO DAILY Fluid #90 tabs 08/31/22 atorvastatin 80 mg tablet 80 mg PO DAILY #90 tabs 09/22/23 rivaroxaban 20 mg tablet (Xarelto) 20 mg PO HS PE's #30 tabs 05/09/24 sacubitril 24 mg-valsartan 26 mg 1 tab PO BID #60 tabs 06/25/24 tablet (Entresto) magnesium oxide 400 mg (241.3 mg 400 mg PO DAILY Supplement #30 tabs 07/24/24 magnesium) tablet doxycycline hyclate 100 mg tablet 100 mg PO BID 10 days #20 tabs 08/12/24 prednisone 20 mg tablet 40 mg (2 x 20 mg) PO DAILY 4 days 08/12/24 #8 tabs Allergies Allergy/AdvReac Type Severity Reaction Status Date / Time cephalexin (From KEFLEX) Allergy Mild Verified 06/25/24 10:02 erythromycin base Allergy Mild Verified 06/25/24 10:02 (ERYTHROMYCIN BASE) naproxen (NAPROXEN) Allergy Mild Verified 06/25/24 10:02 PCN Allergy Mild Uncoded 06/25/24 10:02 PFSH [facility] Disclaimer: The information contained in this section may have been updated after the patient was seen, as this information can be updated by other users. Medical History Cough Dyspnea Diastolic dysfunction Hypomagnesemia HLD (hyperlipidemia) Social History Smoking Status: Never smoker alcohol intake: current alcohol intake frequency: 0-2 drinks per day substance use type: denies use current occupational status: employed Travel in the last 8 weeks: Inside the [place] Other Medical History Have you received the Pneumonia Vaccine: No ROS Obtained: Yes All systems reviewed & no additional complaints except as documented Physical Exam General General appearance: alert and obese Comment: Mild respiratory distress Head Head exam: atraumatic and normocephalic Eye Eye exam: Present normal appearance, PERRL and EOMI ENT ENT exam: Present normal exam, normal oropharynx, mucous membranes moist and normal external ear exam Neck Neck exam: Present normal inspection, full ROM and trachea midline; Absent tenderness Chest Chest inspection: Present normal inspection and symmetric chest wall rise; Absent tenderness Respiratory Respiratory exam: Present wheezes, accessory muscle use, prolonged expiratory phase and other (Conversational dyspnea); Absent stridor Cardiovascular Cardiovascular exam: Present regular rate and normal rhythm Abdominal Exam Abdominal exam: Present soft; Absent distention, tenderness or guarding Extremities Exam Extremities exam: Present full ROM, normal capillary refill and edema (Symmetric bilateral lower extremity edema); Absent tenderness Back Exam Back exam: Present normal inspection and full ROM; Absent tenderness Neurological Exam Neurological exam: Present alert, oriented X3, CN II-XII intact and normal gait; Absent motor sensory deficit Psychiatric Psychiatric exam: Present normal affect and normal mood Skin Skin exam: Present warm and dry HEART Score HEART Score HEART Score assessment performed?: Yes History (anamnesis): Slightly suspicious ECG: Normal Age: 45-65 years Risk factors: 1-2 risk factors Troponin: </= normal limit HEART Score: 2 Critical Care Critical Care Time Critical Care Time: No Medical Decision Making Lio Inquiry Pt receiving controlled substance: No Vital Signs Vital Signs: 08/12/24 15:39 08/12/24 16:09 08/12/24 16:30 Temperature 97.8 F Temperature Source Oral Pulse Rate 63 71 Pulse Rate [Left Radial] 88 Respiratory Rate 16 14 24 Blood Pressure 128/78 123/77 Blood Pressure [Right Arm] 166/104 H Blood Pressure Mean [Right Arm] 124 Blood Pressure Source Blood Pressure Position 02 Sat by Pulse Oximetry 95 97 93 L Oxygen Delivery Method Room Air Room Air Room Air 08/12/24 17:00 08/12/24 18:01 08/12/24 18:30 Temperature Temperature Source Pulse Rate 72 71 75 Pulse Rate [Left Radial] Respiratory Rate 14 15 24 Blood Pressure 132/79 147/90 H 141/83 H Blood Pressure [Right Arm] Blood Pressure Mean [Right Arm] Blood Pressure Source Blood Pressure Position 02 Sat by Pulse Oximetry 94 L 95 97 Oxygen Delivery Method Room Air Room Air Room Air 08/12/24 19:00 08/12/24 19:11 08/12/24 19:31 Temperature Temperature Source Pulse Rate 71 71 Pulse Rate [Left Radial] Respiratory Rate 18 20 22 Blood Pressure 161/94 H 152/88 H Blood Pressure [Right Arm] Blood Pressure Mean [Right Arm] Blood Pressure Source Blood Pressure Position 02 Sat by Pulse Oximetry 95 94 L Oxygen Delivery Method 08/12/24 19:56 Temperature 98.7 F Temperature Source Oral Pulse Rate 71 Pulse Rate [Left Radial] Respiratory Rate 18 Blood Pressure 152/88 H Blood Pressure [Right Arm] Blood Pressure Mean [Right Arm] Blood Pressure Source Automatic Cuff Blood Pressure Position Supine 02 Sat by Pulse Oximetry Oxygen Delivery Method Room Air Lab Data Labs: Lab Results 08/12/24 15:18: C-Reactive Protein 36.4 H, Procalcitonin < 0.030 08/12/24 15:54: VBG pH 7.44 H, VBG pCO2 38.6, VBG pO2 65.1 H, VBG HCO3 25.8, VBG Total CO2 27.0, VBG O2 Saturation 92.6 H, VBG Base Excess 1.7, VBG Lactic Acid 3.6 H, Lactate 3.3 H 08/12/24 16:11: WBC 11.7 H, RBC 4.93, Hgb 15.6, Hct 43.4, MCV 88.0, MCH 31.6 H, MCHC 35.9 H, RDW 14.6, Plt Count 301, MPV 8.0, Neut % (Auto) 75.4, Lymph % (Auto) 13.4, [place] % (Auto) 6.1, Eos % (Auto) 4.5, Baso % (Auto) 0.7, Neut # (Auto) 8.8 H, Lymph # (Auto) 1.6, [place] # (Auto) 0.7, Eos # (Auto) 0.5 H, Baso # (Auto) 0.1, PT 12.4, INR 1.12 H, APTT 30.1, Sodium 138, Potassium 4.0, Chloride 103, Carbon Dioxide 27, Anion Gap 12.0, BUN 8 L, Creatinine 0.70, Estimated Creat Clear 131, Estimated GFR 117, Est GFR ( Amer) 142, Glucose 179 H, Calcium 9.5, Magnesium 1.7, Total Bilirubin 1.0, AST 68 H, ALT 60, Alkaline Phosphatase 149 H, Troponin I < 0.01, NT-Pro-B Natriuret Pep 87.5, Total Protein 7.5, Albumin 4.0, Globulin 3.5 H, Albumin/Globulin Ratio 1.1, SARS-CoV-2 (PCR) Not detected, HIV 1&2 Antibody Rapid Nonreactive, Influenza A Untype (PCR) Not detected, Influenza Type B (PCR) Not detected 08/12/24 18:40: Troponin I < 0.01 08/12/24 16:11 08/12/24 16:11 Response Orders (Tests/Meds): ED MEDICATIONS Generic Name Dose Route Start Last Admin Trade Name Freq PRN Reason Stop Dose Admin Sodium Chloride 10 ml 08/12/24 17:37 08/12/24 17:38 Sodium Chloride 0.9% 10ml Syr (Rad Only) IV 09/11/24 17:36 10 ml NEEDED PRN Administration Maintain IV Site Discontinued Medications Generic Name Dose Route Start Last Admin Trade Name Adri PRN Reason Stop Dose Admin Albuterol Sulfate 2 puff 08/12/24 18:32 08/12/24 18:52 Albuterol-Hfa 90mcg/Puff Inhaler 8gm IH 08/12/24 18:33 2 puff ONCE ONE Administration Albuterol/Ipratropium 6 ml 08/12/24 15:52 08/12/24 15:58 Ipratropium/Albuterol 3 Ml Neb IH 08/12/24 15:53 6 ml ONCE ONE Administration Doxycycline Hyclate 100 mg 08/12/24 19:24 08/12/24 19:40 Doxycycline Hycl 100 Mg Tablet PO 08/12/24 19:25 100 mg ONCE ONE Administration Furosemide 40 mg 08/12/24 19:24 08/12/24 19:40 Furosemide 40mg/4ml Vial IV 08/12/24 19:25 40 mg ONCE ONE Administration Iopamidol 70 ml 08/12/24 17:37 08/12/24 17:38 Iopamidol-370 (76%);100ml Bottle IV 08/12/24 17:38 70 ml ONCE ONE Administration Methylprednisolone Sodium Succinate 125 mg 08/12/24 18:31 08/12/24 18:43 Methylprednisolone Sod Succ 125mg Vial IV 08/12/24 18:32 125 mg ONCE ONE Administration Miscellaneous 1 unit 08/12/24 18:31 08/12/24 18:52 Aerochamber/Optihaler MC 08/12/24 18:32 1 unit ONCE ONE Administration Sodium Chloride 50 ml 08/12/24 17:37 08/12/24 17:38 0.9 % Sodium Chloride 50 Ml Vial IV 08/12/24 17:38 50 ml ONCE ONE Administration ORDERS Category Date Time Status CTA Chest [CT angio chest PE protocol] Stat Cat Scan 08/12/24 15:51 Completed BNP [NT Pro Brain Natriuretic Pep.] Stat Lab 08/12/24 16:11 Completed C-Reactive Protein Stat Lab 08/12/24 15:18 Completed Complete Blood Count Auto Diff Stat Lab 08/12/24 16:11 Completed Comprehensive Metabolic Panel Stat Lab 08/12/24 16:11 Completed HIV (1&2) Antibody Rapid Stat Lab 08/12/24 16:11 Completed Hep C Ab with Reflex to RNA Stat Lab 08/12/24 16:11 Received Lactic Acid Routine Lab 08/12/24 15:54 Completed Magnesium Stat Lab 08/12/24 16:11 Completed PT/INR [Prothrombin Time INR] Stat Lab 08/12/24 16:11 Completed PTT [Activated Partial Thrombo Time] Stat Lab 08/12/24 16:11 Completed Procalcitonin Stat Lab 08/12/24 15:18 Completed Rapid PCR Covid and Flu A/B Stat Lab 08/12/24 16:11 Completed Trop I [Troponin I] Stat Lab 08/12/24 16:11 Completed Troponin I Q3H Lab 08/12/24 18:40 Completed Troponin I Q3H Lab 08/12/24 22:00 Ordered Blood Culture Stat Micro 08/12/24 17:44 Received VBG [Venous Blood Gas] Stat RT 08/12/24 15:54 Completed ECG Data Tracing #1: Attestation: I reviewed this ECG and interpreted as documented below: ECG Narrative: Normal sinus rhythm with a ventricular rate of [address] changes concerning for STEMI. Normal intervals. ECG initial impression date: 08/12/24 ECG initial impression time: 15:41 MDM Narrative Medical Decision Narrative: In summary, this patient is a 54-year-old male presenting to the Emergency Department for evaluation of chest pain and shortness of breath. Differential diagnoses considered include but are not limited to ACS, dysrhythmia, CHF exacerbation, PE, pneumonia. Ruling out the most morbid conditions drove assessment. It should be noted patient's history includes obesity, hypertension, PE which may or may not be at goal therapy. This complicates all aspects of care by increasing patient's risk for morbidity. I reviewed patient's past medical records and noted previous cardiology evaluations and [facility], [facility]. On exam, the patient is lying in bed. He has increased work of breathing with accessory muscle use and prolonged expiratory phase. He has conversational dyspnea. He has wheezing noted, left greater than right. he denies any history of asthma, COPD, or smoking history. workup included CBC, CMP, troponin, BNP, PT, PTT, magnesium, EKG, CTA PE protocol. He was given DuoNebs to assess for symptomatic improvement as well as improvement in work of breathing. EKG obtained is nonischemic. I independently interpreted CT scan prior to the radiologist read and noted scattered patchy infiltrates. Please see their read for final interpretation. Radiology notes concern for pulmonary edema versus infectious etiology. Labs were obtained that demonstrated mild leukocytosis, mildly elevated lactic acid, mild elevation in CRP with normal procalcitonin. I considered sepsis given mild leukocytosis and elevation in lactic acid, however patient is afebrile, not tachypneic, nontachycardic. He also is very well-appearing and I have low concern for sepsis based on clinical exam. Fluids were not given given history of heart failure. I did send blood cultures just to be on the safe side. I considered pulmonary edema as a cause, but BNP is normal and I favor infectious etiology based on lab evaluation and clinical exam. On reassessment, patient had great improvement after administration of DuoNeb's. He no longer has wheezing or increased work of breathing. He is resting comfortably with normal vitals on room air. He was able to ambulate without desaturation. Given response to this, he was given albuterol inhaler as well as IV methylprednisolone. Given and concern for infectious etiology of his CT findings, I provided him with doxycycline, as he has cephalosporin and penicillin allergies. Just in case this could be pulmonary edema, I did give him a dose of IV Lasix on top of his home Lasix here to help facilitate diuresis. Ultimately at this time, I feel that he is appropriate for discharge home with prescriptions for doxycycline and prednisone. He was given inhaler to go home with. He was given strict return precautions and instructions for close follow-up with primary care as well as cardiology. Patient was discharged after all questions were answered
[2024-08-12 16:16] LABS: Coronavirus 19, PCR Not Detected (NotDetected); Influenza A, PCR Not Detected (NotDetected); Influenza B, PCR Not Detected (NotDetected)
[2024-08-12 16:20] LABS: Basophils # 0.1 K/mm3 (0-0.2); Basophils % 0.7 % (0.1-2.0); Eosinophils # 0.5 K/mm3 (0.0-0.4); Eosinophils % 4.5 % (0.1-12.0); Hematocrit 43.4 % (42.0-52.0); Hemoglobin 15.6 g/dL (14.1-18.0); Lymphocytes # 1.6 K/mm3 (0.7-4.5); Lymphocytes % 13.4 % (10-50); Mean Corpuscular HGB Conc 35.9 g/dL (31.8-35.4); Mean Corpuscular Hemoglobin 31.6 pg (27.0-31.2); Monocytes # 0.7 K/mm3 (0.1-1.0); Monocytes % 6.1 % (1.7-9.3); Neutrophils # 8.8 K/mm3 (1.8-7.8); Neutrophils % 75.4 % (37.0-80.0); Platelet Count 301 K/mm3 (142-424); Red Blood Count 4.93 M/mm3 (4.60-6.20); Red Cell Distribution Width 14.6 % (11.5-17.5); White Blood Count 11.7 K/mm3 (4.8-10.8)
[2024-08-12 16:25] LABS: INR 1.12 (0.9-1.1); Prothrombin Time 12.4 seconds (10.1-12.5)
[2024-08-12 16:33] LABS: Activated Partial Thrombo Time 30.1 seconds (22.8-30.6)
[2024-08-12 16:37] LABS: Chloride 103 mmol/L (98-107); Sodium 138 mmol/L (136-145)
[2024-08-12 16:40] LABS: Alanine Aminotransferase 60 U/L (12-78); Albumin/Globulin Ratio 1.1 (1.1-1.8); Alkaline Phosphatase 149 U/L (38-126); Aspartate Amino Transferase 68 U/L (17-59); Blood Urea Nitrogen 8 mg/dl (9-20); Calcium 9.5 mg/dl (8.4-10.2); Carbon Dioxide 27 mmol/L (22.0-30.0); Creatinine Clearance Estimated 131 mL/min (50-200); Estimated Glomerular Filt Rate 117 ml/min (>60); GFR (African American) 142 ML/MIN (>60); Globulin 3.5 g/dL (1.3-3.2); Glucose 179 mg/dl (74-100); Magnesium 1.7 mg/dl (1.6-2.3); Total Protein,Serum 7.5 g/dl (6.3-8.2)
[2024-08-12 16:49] LABS: NT Pro Brain Natriuretic Pep. 87.5 pg/mL (0-125)
[2024-08-12 16:58] LABS: Troponin I < 0.01 ng/ml (0.00-0.034)
[2024-08-12 17:19] LABS: Lactic Acid 3.3 mmol/L (0.7-2.1)
[2024-08-12] MEDS: SODIUM CHLORIDE 0.9% 10ML SYR (RAD ONLY) 10 ML IV (17:38)
[2024-08-12] MEDS: 0.9 % SODIUM CHLORIDE 50 ML VIAL IV (17:38)
[2024-08-12] MEDS: IOPAMIDOL-370 (76%);100ML BOTTLE 70 ML IV (17:38)
[2024-08-12 17:53] LABS: C-Reactive Protein 36.4 mg/L (0-4)
[2024-08-12 18:07] LABS: Procalcitonin < 0.030 ng/mL (0.0-2.0)
--- NOTE | 2024-08-12 18:28 | PC.NURSE ---
call made to rad to check on status of scan, ria states, it has not been read yet .
[2024-08-12 18:32] LABS: HIV (1&2) Antibody Rapid NONREACTIVE (NONREACTIVE)
[2024-08-12] MEDS: METHYLPREDNISOLONE SOD SUCC 125MG VIAL 125 MG IV (18:43)
[2024-08-12] MEDS: ALBUTEROL-HFA 90MCG/PUFF INHALER 8GM 2 PUFF IH (18:52)
[2024-08-12] MEDS: AEROCHAMBER/OPTIHALER 1 UNIT MC (18:52)
[2024-08-12 19:11] LABS: Troponin I < 0.01 ng/ml (0.00-0.034)
[2024-08-12] MEDS: DOXYCYCLINE HYCL 100 MG TABLET PO (19:40)
[2024-08-12] MEDS: FUROSEMIDE 40MG/4ML VIAL 40 MG IV (19:40)
--- NOTE | 2024-08-12 19:46 | PC.NURSE ---
Patient did one lap around the ER/[facility] station. Did well with ambulation.
[2024-08-15 05:10] LABS: HCV Ab Non Reactive (Non Reactive)
== END 2024-08-12 20:04 | disposition home or self-care (01) ==
PROVIDERS: Emergency Provider Emergency Medicine; PCP Family Medicine
DX: J18.9 Pneumonia, unspecified organism (principal); R06.2 Wheezing; R06.02 Shortness of breath; R07.9 Chest pain, unspecified; R05.9 Cough, unspecified; R06.01 Orthopnea
CPT/HCPCS: 71275; 80053; 82803; 83605; 83735; 83880; 84145; 84484; 85025; 85610; 85730; 86140; 86803; 87040; 87389; 87636; 93005; 96374; 96375; 99285; J1940; J2919; J7620; Q9967

== ENCOUNTER 2024-09-16 09:28 | Emergency (ER) | payer OTHER, SELFPAY ==
--- NOTE | 2024-09-16 09:35 | XR_ITS ---
PROCEDURE INFORMATION: Exam: XR Chest Exam date and time: 09/16/2024 9:39 AM Age: 54 years old Clinical indication: Shortness of breath; Additional info: SOB TECHNIQUE: Imaging protocol: Radiologic exam of the chest. Views: 2 views. COMPARISON: CT ANGIO CHEST PE PROTOCOL 08/12/2024 5:30 PM FINDINGS: Lungs: Unremarkable. No consolidation. No significant interval changes. Pleural spaces: Unremarkable. No pleural effusion. No pneumothorax. Heart/Mediastinum: Heart is mildly enlarged, unchanged. Bones/joints: Unremarkable for age. IMPRESSION: Stable chest. No active disease.
[2024-09-16 09:44] VITALS: BP 146/92; PULSE 79; RESP 34; TEMP 36.8; O2SAT 93; BMI 45.0
--- NOTE | 2024-09-16 09:56 | EXP.UTC ---
Discharge Plan Disposition Patient Disposition: Still a Patient Condition: Fair Prescriptions Prescriptions: No Action Entresto 24-26 mg tablet 1 tab PO BID Qty: 60 2RF Entresto 24-26 mg tablet 1 tab PO DAILY 0RF allopurinol 300 mg tablet 300 mg PO DAILY allopurinol 100 mg tablet 100 mg PO DAILY cholecalciferol (vitamin D3) [Vitamin D3] 25 mcg (1,000 unit) capsule 25 mcg PO BID garlic 1,000 mg capsule 1,000 mg PO DAILY atorvastatin 80 mg tablet 80 mg PO DAILY Qty: 90 3RF carvedilol 12.5 mg tablet 12.5 mg PO BID furosemide [Lasix] 40 mg tablet 40 mg PO DAILY Qty: 90 3RF Xarelto 20 mg tablet 20 mg PO HS Qty: 30 8RF magnesium oxide 400 mg (241.3 mg magnesium) tablet 400 mg PO DAILY Qty: 30 5RF doxycycline hyclate 100 mg tablet 100 mg PO BID 10 Days Qty: 20 0RF prednisone 20 mg tablet 40 mg PO DAILY 4 Days Qty: 8 0RF Referrals Follow up/Referrals: Dion Enriquez [Primary Care Provider] - See instructions Clinical Impressions Clinical Impression: Blurry vision, Shortness of breath Print Language Print Language: Azeri Discharge ED Provider[place] [facility] [place] Stated complaint: soa cough blurred vision Mode of Arrival: Ambulatory Source of Information: Patient Time Seen by Provider: 09/16/24 09:56 Description of Symptoms (Recalled from Triage Doc. by RN): SOA, NOT FEELING BETTER AFTER PNA DX ON 08/12/24, DID STATE THAT HE TOOK ALL THIS MEDICATIONS HEENT Symptoms (Recalled from RN notes): No Resp Symptoms (Recalled from RN notes): Yes Skin Symptoms (Recalled from RN notes): No MS Symptoms (Recalled from RN notes): No Functional Status (Recalled from RN notes): WNL History of Present Illness Provider Complaint: He states that he is currently having blurry vision and worsening shortness of breath and chest congestion. He denies any chest pain and head pain. He states that he was treated for pneumonia in the ER on 08/14. He denies that he got better after this. He has not followed up with his primary care physician. Related Data Home Medications ?Medication ?Instructions ?Recorded ?Confirmed allopurinol 100 mg tablet 100 mg PO DAILY gout 04/21/20 06/25/24 allopurinol 300 mg tablet 300 mg PO DAILY gout 04/21/20 06/25/24 cholecalciferol (vitamin D3) 25 25 mcg PO BID Supplement 04/21/20 06/25/24 mcg (1,000 unit) capsule (Vitamin D3) garlic 1,000 mg capsule 1,000 mg PO DAILY Supplement 04/21/20 09/16/24 carvedilol 12.5 mg tablet 12.5 mg PO BID High blood pressure 09/22/23 09/16/24 Previous Rx's ?Medication ?Instructions ?Recorded furosemide 40 mg tablet (Lasix) 40 mg PO DAILY Fluid #90 tabs 08/31/22 atorvastatin 80 mg tablet 80 mg PO DAILY #90 tabs 09/22/23 rivaroxaban 20 mg tablet (Xarelto) 20 mg PO HS PE's #30 tabs 05/09/24 sacubitril 24 mg-valsartan 26 mg 1 tab PO BID #60 tabs 06/25/24 tablet (Entresto) magnesium oxide 400 mg (241.3 mg 400 mg PO DAILY Supplement #30 tabs 07/24/24 magnesium) tablet doxycycline hyclate 100 mg tablet 100 mg PO BID 10 days #20 tabs 08/12/24 prednisone 20 mg tablet 40 mg (2 x 20 mg) PO DAILY 4 days 08/12/24 #8 tabs Allergies Allergy/AdvReac Type Severity Reaction Status Date / Time cephalexin (From KEFLEX) Allergy Mild Verified 06/25/24 10:02 erythromycin base Allergy Mild Verified 06/25/24 10:02 (ERYTHROMYCIN BASE) naproxen (NAPROXEN) Allergy Mild Verified 06/25/24 10:02 PCN Allergy Mild Uncoded 06/25/24 10:02 Worker's Comp Is this a Worker's Comp case?: No [facility] Disclaimer: The information contained in this section may have been updated after the patient was seen, as this information can be updated by other users. Medical History Cough Dyspnea Diastolic dysfunction Hypomagnesemia HLD (hyperlipidemia) Social History Smoking Status: Never smoker alcohol intake: current alcohol intake frequency: 0-2 drinks per day substance use type: denies use current occupational status: employed Travel in the last 8 weeks: Inside the [place] Have you lived/traveled outside US in past 30 days?: No Contact w/someone who lives/traveled outside US past 30 days?: No Exposure to someone with infectious disease in past 14 days?: No Do you have a fever (greater than 100.4 F or 38 C)?: No Have you tested positive for COVID-19: No Exposed to someone with COVID-19 in past 14 days?: No Do you have a sore throat?: No Do you have a cough?: Yes Do you have any weakness?: No Do you have any diarrhea?: No Are you experiencing any unusual bleeding?: No Do you have any muscle aches/pain?: No Do you have any abdominal pain?: No Are you experiencing loss of taste or smell?: No ROS Obtained: Yes All systems reviewed & no additional complaints except as documented Constitutional Constitutional: Reports poor appetite Eyes Eyes: Reports system reviewed and no additional complaints, except as documented ENT Ears, Nose, Mouth, and Throat: Reports as per HPI Cardiovascular Cardiovascular: Reports system reviewed and no additional complaints, except as documented and Denies chest pain Respiratory Respiratory: Denies shortness of breath, Reports chest congestion, Reports cough, Denies stridor and Denies wheezing Gastrointestinal Gastrointestingal: Reports system reviewed and no additional complaints, except as documented; Denies abdominal pain, diarrhea or vomiting Musculoskeletal Musculoskeletal: Reports system reviewed and no additional complaints, except as documented and Denies arthralgias Integumentary/Breasts Skin/Breast: Reports system reviewed and no additional complaints, except as documented and Denies rash Neurologic Neurologic: Denies paresthesias Allergic/Immunologic Allergic/Immunologic: Denies wheezing Physical Exam General General appearance: alert and in no apparent distress Head Head exam: atraumatic, normocephalic and normal inspection Eye Eye exam: Present normal appearance, PERRL and EOMI ENT ENT exam: Present normal exam, normal oropharynx, mucous membranes moist, TM's normal bilaterally and normal external ear exam Neck Neck exam: Present normal inspection, full ROM and trachea midline; Absent meningismus or lymphadenopathy Chest Chest inspection: Present normal inspection and symmetric chest wall rise; Absent tenderness Respiratory Respiratory exam: Present normal lung sounds bilaterally; Absent respiratory distress Cardiovascular Cardiovascular exam: Present regular rate and normal rhythm; Absent JVD Abdominal Exam Abdominal exam: Present soft and normal bowel sounds; Absent distention, tenderness or guarding Extremities Exam Extremities exam: Present normal inspection, full ROM and normal capillary refill; Absent calf tenderness Back Exam Back exam: Present normal inspection; Absent tenderness Neurological Exam Neurological exam: Present alert and oriented X3 Psychiatric Psychiatric exam: Present normal affect and normal mood Skin Skin exam: Present warm, dry, intact and normal color Lymphatic Lymphatic Findings: no adenopathy Medical Decision Making Medical Records Medical records reviewed: No I reviewed the patient's medical records. Screening: Per USPSTF and CDC recommendations, given the prevalence of disease in our region, it is our hospital?s policy to screen for HIV and viral Hepatitis for all patients aged 18 and over and those with ongoing risk factors. Lio Inquiry Pt receiving controlled substance: No Vital Signs: 09/16/24 09:44 Temperature 98.2 F Temperature Source Oral Pulse Rate [Left Radial] 79 Respiratory Rate 34 H Blood Pressure [Left Arm] 146/92 H Blood Pressure Mean [Left Arm] 110 02 Sat by Pulse Oximetry 93 L Orders (Tests/Meds): ORDERS Category Date Time Status Chest XR 2 view (NOT portable) [XR chest 2V] Stat Exams 09/16/24 09:35 Taken Procedures Miscellaneous Procedure Procedure Performed: He was transferred to the er due to his blurry vision symptoms as well as not getting better after being diagnosed with pneumonia 1 month ago.
[2024-09-16 10:14] VITALS: BP 151/95; PULSE 76; RESP 32; TEMP 36.4; O2SAT 95; BMI 45.0
--- NOTE | 2024-09-16 10:47 | PC.NURSE ---
Dr. Fountain at bedside
--- NOTE | 2024-09-16 10:48 | PC.NURSE ---
Vision Acuity test: Left- 20/25 Right- 20/40 Both- 20/25
--- NOTE | 2024-09-16 10:53 | ECG_ITS ---
APPROVED REPORT Exam: Resting ECG HR:69 bpm ECG Measurements Heart Rate 69 AXES KS 149 P 44 QRSd 90 QRS 11 QT 391 T 54 QTc 411 Conclusion Sinus rhythm Electronically signed by : RITIKA XAVIER, 09/17/2024 07:18:20
[2024-09-16 10:54] LABS: Basophils # 0.1 K/mm3 (0-0.2); Eosinophils # 0.6 K/mm3 (0.0-0.4); Eosinophils % 5.7 % (0.1-12.0); Hematocrit 43.6 % (42.0-52.0); Hemoglobin 15.3 g/dL (14.1-18.0); Lymphocytes # 1.5 K/mm3 (0.7-4.5); Lymphocytes % 15.6 % (10-50); Mean Corpuscular HGB Conc 35.1 g/dL (31.8-35.4); Mean Corpuscular Hemoglobin 31.3 pg (27.0-31.2); Mean Corpuscular Volume 89.2 fl (80-94); Mean Platelet Volume 9.7 fl (7.4-10.4); Monocytes # 0.6 K/mm3 (0.1-1.0); Monocytes % 6.2 % (1.7-9.3); Neutrophils % 70.9 % (37.0-80.0); Platelet Count 279 K/mm3 (142-424); Red Blood Count 4.89 M/mm3 (4.60-6.20); Red Cell Distribution Width 13.4 % (11.5-17.5); White Blood Count 9.9 K/mm3 (4.8-10.8)
[2024-09-16] MEDS: IPRATROPIUM/ALBUTEROL 3 ML NEB 9 ML IH (10:56)
[2024-09-16 10:57] LABS: Albumin Level 4.1 g/dl (3.5-5.0); Chloride 104 mmol/L (98-107); Potassium 4.9 mmoL/L (3.5-5.1); Sodium 137 mmol/L (136-145)
[2024-09-16] MEDS: METHYLPREDNISOLONE SOD SUCC 125MG VIAL 125 MG IV (10:57)
[2024-09-16 10:58] LABS: Coronavirus 19, PCR Not Detected (NotDetected); Influenza A, PCR Not Detected (NotDetected); Influenza B, PCR Not Detected (NotDetected)
--- NOTE | 2024-09-16 10:59 | ED_ITS ---
Discharge Plan Disposition Patient Disposition: Home, Self-Care Condition: Fair Prescriptions Prescriptions: New prednisone 20 mg tablet 40 mg PO DAILY 5 Days Qty: 10 0RF doxycycline monohydrate 100 mg capsule 100 mg PO BID 5 Days Qty: 10 0RF No Action Entresto 24-26 mg tablet 1 tab PO BID Qty: 60 2RF Entresto 24-26 mg tablet 1 tab PO DAILY 0RF allopurinol 300 mg tablet 300 mg PO DAILY allopurinol 100 mg tablet 100 mg PO DAILY cholecalciferol (vitamin D3) [Vitamin D3] 25 mcg (1,000 unit) capsule 25 mcg PO BID garlic 1,000 mg capsule 1,000 mg PO DAILY atorvastatin 80 mg tablet 80 mg PO DAILY Qty: 90 3RF carvedilol 12.5 mg tablet 12.5 mg PO BID furosemide [Lasix] 40 mg tablet 40 mg PO DAILY Qty: 90 3RF Xarelto 20 mg tablet 20 mg PO HS Qty: 30 8RF magnesium oxide 400 mg (241.3 mg magnesium) tablet 400 mg PO DAILY Qty: 30 5RF doxycycline hyclate 100 mg tablet 100 mg PO BID 10 Days Qty: 20 0RF prednisone 20 mg tablet 40 mg PO DAILY 4 Days Qty: 8 0RF Referrals Follow up/Referrals: Dion Enriquez [Primary Care Provider] - See instructions Brenna Marie MD [Physician] - See instructions Activity Restrictions/Add. Instructions Additional Instructions/Restrictions: Bronchitis will likely clear up with course of steroids. Take this each morning for the next 5 days. If you do not feel better or continue to get worse, doxycycline for 5 days twice daily. Call pulmonology to schedule an appointment given persistence of symptoms and further evaluation. Information listed here. Call your family doctor to establish care for this visit to the emergency department and schedule follow-up within 48 hours to ensure improvement. If you have any worsening of your condition or any other concerning signs or symptoms, return to the emergency department or your primary care doctor for further evaluation. Clinical Impressions Clinical Impression: Blurry vision, Shortness of breath, Productive cough, Bronchitis Print Language Print Language: Yakut Discharge ED Provider: Bharath Fountain General Chief Complaint: Shortness of Breath/Dyspnea Stated Complaint: soa cough blurred vision Time Seen by Provider: 09/16/24 09:56 Mode of Arrival: Ambulatory Source of Information: Patient, Spouse and Medical Record Limitations: No Limitations Description of Symptoms (Recalled from ER Triage Doc. by RN): Pt sent over from [facility] d/t SOA, dyspnea, and blurry vision. He does have diabetes, FS 137 on arrival to ED. States he has not felt well since Aug when he had pneumonia. He has a productive cough with light green sputum. Denies any fever. States the breathing treatment helped the last time this happened . He used his albuterol inhaler [employer] but it did not relive his symptoms. Pt is tachypneic and states I can't get no air . History of Present Illness HPI narrative: Please note that above description of symptoms, in this electronic medical record under categorization of recalled from ER triage doctor by RN are reflective of an initial nursing assessment, however, is not reflective of my full history and physical exam that was personally taken and clarified. Consequentially, this preceding description of symptoms, which may include the patient's categorized chief complaint in the EMR, do not reflect my personal clinical impression, and the ultimate description of history of present illness and patient stated complaints should be deferred to this section of the note. Unless stated otherwise or congruent with this section of the note, additional signs, symptoms, or incongruence should be interpreted as inaccurate with my clinical impression. Related Data Home Medications ?Medication ?Instructions ?Recorded ?Confirmed allopurinol 100 mg tablet 100 mg PO DAILY gout 04/21/20 06/25/24 allopurinol 300 mg tablet 300 mg PO DAILY gout 04/21/20 06/25/24 cholecalciferol (vitamin D3) 25 25 mcg PO BID Supplement 04/21/20 06/25/24 mcg (1,000 unit) capsule (Vitamin D3) garlic 1,000 mg capsule 1,000 mg PO DAILY Supplement 04/21/20 09/16/24 carvedilol 12.5 mg tablet 12.5 mg PO BID High blood pressure 09/22/23 09/16/24 Previous Rx's ?Medication ?Instructions ?Recorded furosemide 40 mg tablet (Lasix) 40 mg PO DAILY Fluid #90 tabs 08/31/22 atorvastatin 80 mg tablet 80 mg PO DAILY #90 tabs 09/22/23 rivaroxaban 20 mg tablet (Xarelto) 20 mg PO HS PE's #30 tabs 05/09/24 sacubitril 24 mg-valsartan 26 mg 1 tab PO BID #60 tabs 06/25/24 tablet (Entresto) magnesium oxide 400 mg (241.3 mg 400 mg PO DAILY Supplement #30 tabs 07/24/24 magnesium) tablet doxycycline hyclate 100 mg tablet 100 mg PO BID 10 days #20 tabs 08/12/24 prednisone 20 mg tablet 40 mg (2 x 20 mg) PO DAILY 4 days 08/12/24 #8 tabs doxycycline monohydrate 100 mg 100 mg PO BID 5 days #10 caps 09/16/24 capsule prednisone 20 mg tablet 40 mg (2 x 20 mg) PO DAILY 5 days 09/16/24 #10 tabs Allergies Allergy/AdvReac Type Severity Reaction Status Date / Time cephalexin (From KEFLEX) Allergy Mild Verified 06/25/24 10:02 erythromycin base Allergy Mild Verified 06/25/24 10:02 (ERYTHROMYCIN BASE) naproxen (NAPROXEN) Allergy Mild Verified 06/25/24 10:02 PCN Allergy Mild Uncoded 06/25/24 10:02 PFSH PFS Disclaimer: The information contained in this section may have been updated after the patient was seen, as this information can be updated by other users. Medical History Cough Dyspnea Diastolic dysfunction Hypomagnesemia HLD (hyperlipidemia) Social History Smoking Status: Never smoker alcohol intake: current alcohol intake frequency: 0-2 drinks per day substance use type: denies use current occupational status: employed Travel in the last 8 weeks: Inside the [place] Have you lived/traveled outside US in past 30 days?: No Contact w/someone who lives/traveled outside US past 30 days?: No Exposure to someone with infectious disease in past 14 days?: No Do you have a fever (greater than 100.4 F or 38 C)?: No Have you tested positive for COVID-19: No Exposed to someone with COVID-19 in past 14 days?: No Do you have a sore throat?: No Do you have a cough?: Yes Do you have any weakness?: No Do you have any diarrhea?: No Are you experiencing any unusual bleeding?: No Do you have any muscle aches/pain?: No Do you have any abdominal pain?: No Are you experiencing loss of taste or smell?: No Other Medical History Have you received the Pneumonia Vaccine: No ROS Obtained: Yes All systems reviewed & no additional complaints except as documented Physical Exam General General appearance: alert and in distress (Mild respiratory distress) Neck Neck exam: Present trachea midline Chest Chest inspection: Present normal inspection and symmetric chest wall rise Respiratory Respiratory exam: Present normal lung sounds bilaterally, respiratory distress and other (Speaking in partial sentences. Mildly tachypneic); Absent wheezes, stridor, accessory muscle use or prolonged expiratory phase Cardiovascular Cardiovascular exam: Present regular rate, normal rhythm and other (Pulses equal and symmetric in upper and lower extremities) Extremities Exam Extremities exam: Absent edema Neurological Exam Neurological exam: Present alert, oriented X3, CN II-XII intact and normal gait Skin Skin exam: Present warm and dry; Absent cyanosis, diaphoresis or pallor HEART Score HEART Score HEART Score assessment performed?: Yes History (anamnesis): Slightly suspicious ECG: Normal Age: 45-65 years Risk factors: 1-2 risk factors Troponin: </= normal limit HEART Score: 2 Critical Care Critical Care Time Critical Care Time: No Medical Decision Making Medical Records Medical records reviewed: Yes I reviewed the patient's medical records. Lio Inquiry Pt receiving controlled substance: No Lio was queried for this patient: No Vital Signs Vital Signs: 09/16/24 09:44 09/16/24 10:14 Temperature 98.2 F 97.6 F Temperature Source Oral Oral Pulse Rate [Left Radial] 79 76 Respiratory Rate 34 H 32 H Blood Pressure [Left Arm] 146/92 H Blood Pressure [Right Arm] 151/95 H Blood Pressure Mean [Left Arm] 110 Blood Pressure Mean [Right Arm] 113 Blood Pressure Source [Right Arm] Automatic Cuff 02 Sat by Pulse Oximetry 93 L 95 Oxygen Delivery Method Room Air Lab Data Labs: Lab Results 09/16/24 10:06: WBC 9.9, RBC 4.89, Hgb 15.3, Hct 43.6, MCV 89.2, MCH 31.3 H, MCHC 35.1, RDW 13.4, Plt Count 279, MPV 9.7, Neut % (Auto) 70.9, Lymph % (Auto) 15.6, Sheridan % (Auto) 6.2, Eos % (Auto) 5.7, Baso % (Auto) 1.0, Neut # (Auto) 7.0, Lymph # (Auto) 1.5, Sheridan # (Auto) 0.6, Eos # (Auto) 0.6 H, Baso # (Auto) 0.1, Sodium 137, Potassium 4.9, Chloride 104, Carbon Dioxide 27, Anion Gap 10.9, BUN 6 L, Creatinine 0.60 L, Estimated Creat Clear 153, Estimated GFR 140, Est GFR ( Amer) 169, Glucose 153 H, Calcium 9.3, Total Bilirubin 0.6, AST 68 H, ALT 71, Alkaline Phosphatase 127 H, Troponin I < 0.01, NT-Pro-B Natriuret Pep 31.9, Total Protein 7.7, Albumin 4.1, Globulin 3.6 H, Albumin/Globulin Ratio 1.1, HCV Ab SHAHRZAD w/Rflx PCR Qn Negative, HIV Ag/Ab Combo Qual Negative 09/16/24 10:45: VBG pH 7.38, VBG pCO2 45.1, VBG pO2 34.8, VBG HCO3 26.1, VBG Total CO2 27.5 H, VBG O2 Saturation 69.3, VBG Base Excess 1.0, VBG Lactic Acid 2.4 H 09/16/24 10:48: SARS-CoV-2 (PCR) Not detected, Influenza A Untype (PCR) Not detected, Influenza Type B (PCR) Not detected 09/16/24 10:06 09/16/24 10:06 Response Orders (Tests/Meds): ED MEDICATIONS Generic Name Dose Route Start Last Admin Trade Name Freq PRN Reason Stop Dose Admin Sodium Chloride 10 ml 09/16/24 10:45 Sodium Chloride 0.9% 10ml Flush Syringe IV 10/16/24 10:44 NEEDED PRN Maintain IV Site Discontinued Medications Generic Name Dose Route Start Last Admin Trade Name Freq PRN Reason Stop Dose Admin Albuterol/Ipratropium 9 ml 09/16/24 10:51 09/16/24 10:56 Ipratropium/Albuterol 3 Ml Neb IH 09/16/24 10:52 9 ml ONCE ONE Administration Iopamidol 70 ml 09/16/24 12:31 09/16/24 12:32 Iopamidol-370 (76%);100ml Bottle IV 09/16/24 12:32 70 ml ONCE ONE Administration Methylprednisolone Sodium Succinate 125 mg 09/16/24 10:51 09/16/24 10:57 Methylprednisolone Sod Succ 125mg Vial IV 09/16/24 10:52 125 mg ONCE ONE Administration Sodium Chloride 10 ml 09/16/24 12:31 09/16/24 12:32 Sodium Chloride 0.9% 10ml Syr (Rad Only) IV 09/16/24 12:32 10 ml ONCE ONE Administration Sodium Chloride 50 ml 09/16/24 12:31 09/16/24 12:32 0.9 % Sodium Chloride 50 Ml Vial IV 09/16/24 12:32 50 ml ONCE ONE Administration ORDERS Category Date Time Status CT angio chest PE protocol Stat Cat Scan 09/16/24 11:32 Completed Chest XR 2 view (NOT portable) [XR chest 2V] Stat Exams 09/16/24 09:35 Completed Complete Blood Count Auto Diff Stat Lab 09/16/24 10:06 Completed Comprehensive Metabolic Panel Stat Lab 09/16/24 10:06 Completed HIV Combo Stat Lab 09/16/24 10:06 Completed Hepatitis C Ab Qual. W/ RFX Stat Lab 09/16/24 10:06 Completed NT Pro Brain Natriuretic Pep. Stat Lab 09/16/24 10:06 Completed Rapid PCR Covid and Flu A/B Stat Lab 09/16/24 10:48 Completed Troponin I Q3H Lab 09/16/24 13:45 Ordered Troponin I Q3H Lab 09/16/24 16:45 Ordered Troponin I Stat Lab 09/16/24 10:06 Completed VBG [Venous Blood Gas] Routine RT 09/16/24 10:45 Completed MDM Narrative Medical Decision Narrative: 54-year-old male history of hypertension, hyperlipidemia, diastolic dysfunction, pulmonary emboli currently on Xarelto, CAD and HI presenting with shortness of breath. Patient states that this has been going on for about a month. It is exertional, nonpositional. He has had a cough that is productive of green sputum no fevers or chills. Has not missed any doses of his anticoagulation. States that he had pneumonia previously and this is what it felt like. History was obtained via conversation with patient and . On arrival, patient hemodynamically stable, alert, oriented x4, appropriate, GCS 15, moving all extremities spontaneously, pupils equal and reactive to light. Full physical exam performed and significant for well-appearing male he is in mild respiratory distress. He is speaking in partial sentences, mildly tachypneic. Lungs are without wheezes they are quiet and bilateral inferior lobes. He does have bilateral lower extremity 1+ pitting edema. Cardiac exam without any other abnormalities. Differential includes pneumonia, CHF, ACS, HI, PE, pneumothorax, among others. Patient was given DuoNebs, Solu-Medrol for symptomatic management and correction of underlying abnormalities. Patient placed on continuous cardiac monitoring and continuous pulse ox with initial blood pressure 146/92, heart rate 79, saturation 93% on room air breathing about 30 times per minute. Independent interpretation of EKG shows sinus rhythm 69 bpm with MT 149, QRS 90, QTc 411. Normal axis. No acute ischemic change. Workup independently interpreted and significant for nonactionable CBC or chemistry, nonactionable VBG. BNP and troponin negative. COVID swab negative. On independent interpretation of imaging, no acute cardiopulmonary airspace disease on chest x-ray, CT angiogram without PE, or obvious airspace disease. See radiology read for full review of final results. Heart score 2. On reevaluation, patient looks and sounds better, still mildly tachypneic 20 to 25 breaths/min, but nontachycardic and saturating appropriately. He is speaking in full sentences. Conversation had with him and regarding findings, they are reassured that life-threatening process is being ruled out, but still concerned about his symptoms. Could be the patient has bronchitis. He does have motion artifact and some inflammatory bronchial changes on his chest CT, but no obvious consolidation. Prednisone to be sent to the pharmacy as well as albuterol inhaler request. I did have conversation with them about watch and wait prescription for doxycycline in case he gets worse or does not feel any better after prednisone, they voiced their understanding and are agreeable to this plan as well. This sent to pharmacy as well. Pulmonology outpatient recommended, information given for this. Because patient at baseline without signs or symptoms of clinical decompensation, deemed appropriate for discharge. Results were relayed to patient who voiced understanding and were agreeable to outpatient management and follow up. I discussed my clinical impression with patient and answered all questions. At this time, the evidence for any other entities in the differential is insufficient to warrant any further testing or ED observation. This was explained as well. Advisory was given that persistent or worsening symptoms require further evaluation. I confirmed the understanding of this discussion. Densitometrist disclaimer Much of this encounter note is an electronic windows software engineer spoken language to printed text. Electronic windows software engineer of the spoken language may permit errors. Although I have reviewed the note, some errors may still exist.
[2024-09-16 11:00] LABS: Alanine Aminotransferase 71 U/L (12-78); Albumin/Globulin Ratio 1.1 (1.1-1.8); Alkaline Phosphatase 127 U/L (38-126); Anion Gap 10.9 mEq/L (5-15); Aspartate Amino Transferase 68 U/L (17-59); Bilirubin,Total 0.6 mg/dl (0.2-1.3); Blood Urea Nitrogen 6 mg/dl (9-20); Calcium 9.3 mg/dl (8.4-10.2); Carbon Dioxide 27 mmol/L (22.0-30.0); Creatinine Clearance Estimated 153 mL/min (50-200); Estimated Glomerular Filt Rate 140 ml/min (>60); GFR (African American) 169 ML/MIN (>60); Globulin 3.6 g/dL (1.3-3.2); Glucose 153 mg/dl (74-100); Total Protein,Serum 7.7 g/dl (6.3-8.2)
[2024-09-16 11:08] LABS: VBG HCO3 26.1 mmol/L (23-30); VBG Oxygen Saturation 69.3 % (50-70); VBG PCO2 45.1 mmol/L (35-51); VBG PH 7.38 mmol/L (7.31-7.41); VBG PO2 34.8 mmol/L (28-40); VBG Total CO2 27.5 mmol/L (23-27)
[2024-09-16 11:09] LABS: Lactate Venous 2.4 mmol/L (0.4-2.0)
[2024-09-16 11:10] LABS: NT Pro Brain Natriuretic Pep. 31.9 pg/mL (0-125)
[2024-09-16 11:14] LABS: Troponin I < 0.01 ng/ml (0.00-0.034)
--- NOTE | 2024-09-16 11:32 | CT_ITS ---
PROCEDURE INFORMATION: Exam: CTA Chest With Contrast Exam date and time: 09/16/2024 12:25 PM Age: 54 years old Clinical indication: Shortness of breath; Additional info: SOA otherwise normal workup. H/o pe TECHNIQUE: Imaging protocol: Computed tomographic angiography of the chest with contrast. Exam focused on the arteries. 3D rendering (Not supervised by radiologist): MIP and/or 3D reconstructed images were created by the technologist. Radiation optimization: All CT scans at this facility use at least one of these dose optimization techniques: automated exposure control; mA and/or kV adjustment per patient size (includes targeted exams where dose is matched to clinical indication); or iterative reconstruction. Contrast material: ISOVUE; Contrast volume: 70 ml; Contrast route: INTRAVENOUS (IV); COMPARISON: CT ANGIO CHEST PE PROTOCOL 08/12/2024 5:30 PM FINDINGS: Limitations: Study is technically limited due to motion artifact. Pulmonary arteries: Main pulmonary trunk, right and left pulmonary arteries, interlobar branches and 1st order segmental branches are adequately opacified without filling defects or other evidence of acute pulmonary embolism. However more distal subsegmental branches cannot be adequately assessed due to technical limitations of the study. Aorta: Unremarkable. No aortic aneurysm. No aortic dissection. Lungs: Lung volumes are somewhat decreased unchanged likely pocket of body habitus. Small nodular density left lung base decreased in size from 2021 likely benign. No consolidating infiltrates or evaristo pulmonary edema. Pleural spaces: Unremarkable. No pneumothorax. No pleural effusion. Heart: Heart is borderline enlarged. Mild coronary artery calcifications. No significant pericardial effusion. Lymph nodes: Unremarkable. No enlarged lymph nodes. Bones/joints: Unremarkable. No acute fracture. Soft tissues: Unremarkable. IMPRESSION: Technically limited but negative CT angiogram of the chest. No evidence of acute pulmonary embolism to major branches of the pulmonary vascular tree.
[2024-09-16 11:59] LABS: HIV Combo NEGATIVE (Negative)
[2024-09-16] MEDS: 0.9 % SODIUM CHLORIDE 50 ML VIAL IV (12:32)
[2024-09-16] MEDS: SODIUM CHLORIDE 0.9% 10ML SYR (RAD ONLY) 10 ML IV (12:32)
[2024-09-16] MEDS: IOPAMIDOL-370 (76%);100ML BOTTLE 70 ML IV (12:32)
[2024-09-16 13:02] LABS: Hepatitis C Ab Qual. W/ RFX NEGATIVE (Negative)
[2024-09-16 14:02] VITALS: BP 180/103; PULSE 72; RESP 21; TEMP 36.9; O2SAT 94
[2024-09-16 15:09] LABS: Reflex Lactic Add Lactic Reflex
== END 2024-09-16 14:05 | disposition home or self-care (01) ==
LOC: UTC 10:10 → ER 10:14
PROVIDERS: Emergency Provider Emergency Medicine; PCP Family Medicine
DX: J40 Bronchitis, not specified as acute or chronic (principal); R06.02 Shortness of breath; H53.8 Other visual disturbances; R05.8 Other specified cough; R09.81 Nasal congestion
CPT/HCPCS: 71046; 71275; 80053; 82803; 83880; 84484; 85025; 86803; 87389; 87636; 93005; 96374; 99285; J2919; J7620; Q9967

== ENCOUNTER 2025-06-10 15:52 | Outpatient (CLI) | payer OTHER, SELFPAY ==
--- OUTSIDE RECORDS SUMMARY | 2025-06-10 15:55 | XMS_ITS | Clinical Summary ---
Author Organization [facility] Address [address] [place] [address] Care Team Providers Care Cocoa Roaster Name Role Phone Dion Enriquez MD Primary Care Provider [phone] Allergies Active Allergy Reactions Criticality Noted Date Comments Naproxen Hives High 04/15/2020 Erythromycin Anaphylaxis High 04/15/2020 Cephalexin Hives High 04/15/2020 Penicillins Hives High 04/15/2020 Medications allopurinol (ZYLOPRIM) 300 MG tablet Take 1 tablet by mouth Daily. Active cholecalciferol (VITAMIN D3) 25 MCG (1000 UT) tablet Take 1 tablet by mouth 2 (two) times a day. Active Garlic 1200 MG capsule Take 1 capsule by mouth 2 (two) times a day. Active rivaroxaban (XARELTO) 10 MG tablet Take 2 tablets by mouth Every Night. Active sacubitril-valsar echeverria (Entresto) 24-26 MG tablet Take 1 tablet by mouth 2 (Two) Times a Day. Active carvedilol (COREG) 25 MG tablet Take 1 tablet by mouth 2 (Two) Times a Day With Meals. 60 tablet 2 5 Active NIFEdipine XL (ADALAT CC) 60 MG 24 hr tablet Take 1 tablet by mouth Daily. 30 tablet 1 5 Active albuterol sulfate HFA 108 (90 Base) MCG/ACT inhaler Q4H as needed for shortness of breath or wheezing 5 Active furosemide (LASIX) 40 MG tablet Take 1 tablet by mouth Daily. 5 Active atorvastatin (LIPITOR) 80 MG tablet Take 1 tablet by mouth Daily. Active Magnesium Oxide -Mg Supplement 400 (240 Mg) MG tablet TAKE 1 TABLET BY MOUTH DAILY FOR SUPPLEMENT 5 Active Fluticasone-Salme terol (ADVAIR/WIXELA) 500-50 MCG/ACT DISKUSIndications :Moderate persistent asthma without complication Inhale 1 puff 2 (Two) Times a Day. 60 each 11 5 Active azithromycin (Zithromax) 250 MG tabletIndications :Moderate persistent asthma without complication Take 1 tablet by mouth 3 (Three) Times a Week. 90 tablet 1 5 Active Active Problems Problem Noted Date Diagnosed Date Shortness of breath 10/08/2024 Pulmonary embolism (by Cassandra GOODMAN 04/04/20) 04/15/2020 Morbid obesity with BMI of 45.0-49.9, adult 04/05 Essential hypertension 04/15/2020 Non-smoker 04/15/2020 Obesity hypoventilation syndrome 04/15/2020 Resolved Problems Problem Noted Date Diagnosed Date Resolved Date COPD exacerbation 10/06/2024 10/08/2024 Pulmonary nodule (12mm incidental LLL) 04/15/2020 11/09/2024 Encounters Date Type Department Care Team Description 03/12/2025 Telephone [facility] [address] [place] [address] Lillian Gustafson RegSched Rep from Last 3 Months Family History Medical History Relation Name Comments No Known Problems Brother Cancer Father Heart failure Father Hypertension Father No Known Problems Maternal Aunt No Known Problems Maternal Grandfather No Known Problems Maternal Grandmother No Known Problems Maternal Uncle Diabetes Mother Heart failure Mother No Known Problems Paternal Aunt No Known Problems Paternal Grandfather No Known Problems Paternal Grandmother No Known Problems Paternal Uncle Relation Name Status Comments Brother Alive Father Maternal Aunt Maternal Grandfather Maternal Grandmother Maternal Uncle Mother Paternal Aunt Paternal Grandfather Paternal Grandmother Paternal Uncle Social History Tobacco Use Types Packs/Day Years Used Date Smoking Tobacco: Never Smokeless Tobacco: Never Alcohol Use Standard Drinks/Week Comments Yes 12 (1 standard drink = 0.6 oz pu re alcohol) 12 per week AUDIT-C Answer Date Recorded Q1: How often do you have a drink containing alc ohol? 2-4 times a month 10/06/2024 Q2: How many drinks containi ng alcohol do you have on a typical day when you are drinking? 1 or 2 10/06/2024 Q3: How often do you have si x or more drinks on one occasion? Less than monthly 10/06/2024 Exercise Vital Sign Answer Date Recorde d On average, how many days pe r week do you engage in moderate to strenuous exercise (like a brisk walk)? 0 days 10/08/2024 On average, how many minutes do you engage in exercise at this level? 0 min 10/08/2024 Hunger Vital Sign Answer Date Recorded Within the past 12 months, y ou worried that your food would run out before you got the money to buy more. Never true 10/08/19 25 Within the past 12 months, t he food you bought just didn't last and you didn't have money to get more. Never true 10/08/2024 PRAPARE - Transportation Answer Date Re corded In the past 12 months, has l ack of transportation kept you from medical appointments or from getting medications? No 11/2024 In the past 12 months, has l ack of transportation kept you from meetings, work, or from getting things needed for daily living? No 10/08/2024 Abuse Screen Answer Date Recorded Feels Unsafe at Home or Work/School no 10/06/2024 Feels Threatened by Someone no 09/2024 Does Anyone Try to Keep You From Having Contact with Others or Doing Things Outside Your Home? no 10/06/2024 Physical Signs of Abuse Present no 10/06/2024 Housing Stability Answer Date Recorded Current Living Arrangements home 11/2024 Potentially Unsafe Housing Conditions none 10/08/2024 Family and Community Support Answer Tadeo e Recorded If for any reason you need h elp with day-to-day activities such as bathing, preparing meals, shopping, managing finances, etc., do you get the help you need? I get all the help I need 10/08/2024 Lonely or Isolated Not on file 10/08/2024 Employment Answer Date Recorded Do you want help finding or keeping work or a job? Yes, help finding work 10/08/2024 Disabilities Answer Date Recorded Difficulty Concentrating, Remembering or Making Decisions no 10/07/2024 Difficulty Managing Errands Independently no 10/07/2024 Education Answer Date Recorded Help with school or training? Not on file Preferred Language Bahraini 10/08/2024 Sex and Gender Information Value Date Recorded Sex Assigned at Not on file Legal Sex Male 11:35 AM EDT Gender Identity Not on file Sexual Orientation Not on file Last Filed Vital Signs Vital Sign Reading Time Taken Comments Blood Pressure 144/80 01/07/2025 12:33 PM EDT Pulse 95 01/07/2025 12:33 PM EDT Temperature 36 C (96.8 F) 10/08/2024 12:18 PM EST Respiratory Rate 16 10/08/2024 12:18 PM EST Oxygen Saturation 95% 01/07/2025 12:33 PM EDT Inhaled Oxygen Concentration - - Weight 151 kg (332 lb) 01/07/2025 12:33 PM EDT Height 182.9 cm (6') 01/07/2025 12:33 PM EDT Body Mass Index 45.03 01/07/2025 12:33 PM EDT Plan of Treatment Health Maintenance Due Date Last Done Comments Pneumococcal Vaccine 50+ (1 of 2 - PCV) 1988 TDAP/TD VACCINES (1 - Tdap) 1988 COLOGUARD 2014 COLON CANCER SCREENING 5 YEAR SIGMOIDOSCOPY 2014 COLONOSCOPY [address] SCREENING [address] COLONOGRAPHY 2014 FECAL OCCULT BLOOD TEST 2014 FIT Testing (1 year) 2014 ZOSTER VACCINE (1 of 2) 2019 ANNUAL PHYSICAL 04/15/2020 HEPATITIS C SCREENING 04/15/2020 INFLUENZA VACCINE 04/05/2025 Insurance [facility] JOE EDYTA MAXINE DANG [id number] [facility] [employer] [place] [facility] [place] [id number] Advance Directives * CPR (Attempt to Resuscitate) (Latest Code Status on File) Date Activated Date Inactivated Comments 10/06/2024 11:08 PM 10/08/2024 6:46 PM Question Answer Comments Code Status (Patient has no pulse and is not breathing): CPR (Attempt to Resuscitate) Medical Interventions (Patie nt has pulse or is breathing): Full Support Level Of Support Discussed With: Patient Care Teams Cocoa Roaster Relationship Specialty Start Date End Date Dion Enriquez MD [address] [place] [address] PCP - General Family Medicine 10/06/24
[2025-06-10 16:20] LABS: Hematocrit 46.9 % (42.0-52.0); Hemoglobin 16.4 g/dL (14.1-18.0); Immature Granulocytes % 0.5 %; Mean Corpuscular HGB Conc 35.0 g/dL (31.8-35.4); Mean Corpuscular Hemoglobin 30.8 pg (27.0-31.2); Mean Corpuscular Volume 88.0 fl (80-94); Nucleated Red Blood Cells % 0 %; Platelet Count 261 K/mm3 (142-424); Red Blood Count 5.33 M/mm3 (4.60-6.20); Red Cell Distribution Width-SD 40.4 fL; White Blood Count 8.9 K/mm3 (4.8-10.8)
[2025-06-10 17:12] LABS: C-Reactive Protein 30.6 mg/L (0-4)
== END 2025-06-10 23:59 | disposition home or self-care (01) ==
LOC: LAB 15:53
PROVIDERS: PCP Family Medicine; Visit Provider Internal Medicine Pulmonary Disease
DX: J82.83 Eosinophilic asthma (principal); J30.9 Allergic rhinitis, unspecified
CPT/HCPCS: 36415; 82785; 85025; 86003; 86140; 86682; 87070; 87205

== ENCOUNTER → 2025-08-05 14:35 | Outpatient (CLI) | payer OTHER, SELFPAY ==
--- OUTSIDE RECORDS SUMMARY | 2025-08-05 14:48 | XMS_ITS | Clinical Summary ---
Author Organization [facility] Address [address] [place] [address] Care Team Providers Care Linseed Oil Boiler Name Role Phone Dion Enriquez MD Primary Care Provider [phone] Allergies Active Allergy Reactions Criticality Noted Date [...] Pulmonary nodule (12mm incidental LLL) 04/15/2020 11/09/2024 Family History Medical History Relation Name Comments [...] or training? Not on file Preferred Language South Korean 10/08/2024 Sex and Gender Information Value Date [...] C SCREENING 04/15/2020 INFLUENZA VACCINE 04/05/2025 Insurance [facility] Advance Directives * CPR (Attempt to Resuscitate) (Latest Code Status on File) Date Activated Date Inactivated Comments 10/06/2024 11:08 PM 10/08/2024 6:46 PM Question Answer Comments Code Status (Patient has no pulse and is not breathing): CPR (Attempt to Resuscitate) Medical Interventions (Patie nt has pulse or is breathing): Full Support Level Of Support Discussed With: Patient Care Teams Linseed Oil Boiler Relationship Specialty Start Date End Date Dion Enriquez MD [address] [place] [address] PCP - General Family Medicine 10/06/24
== END ==
PROVIDERS: PCP Family Medicine; Visit Provider Internal Medicine Pulmonary Disease
DX: J45.909 Unspecified asthma, uncomplicated (principal)